=== PATIENT | male | born 1945 | race Caucasian/White ===

== ENCOUNTER 2018-07-24 16:37 | Emergency (ER) | payer MEDICARE, OTHER ==
[2018-07-24] MEDS ORDERED: Aspirin 81 MG Tab.Chew PO ONE (16:43)
[2018-07-24] MEDS ORDERED: Diltiazem 25 MG/5 ML SDV IVPUSH ONE (17:23)
[2018-07-24] MEDS ORDERED: Diltiazem 100 MG in Sodium Chloride 0.9% 100 ML IV SCH (18:00)
--- NOTE | 2018-07-24 18:27 | EDM.PDOC ---
ED HPI GENERAL MEDICAL PROBLEM - General Chief Complaint: Respiratory Problem Stated Complaint: MEDICAL VIA AMBULANCE Time Seen by Provider: 07/24/18 17:00 - History of Present Illness INITIAL COMMENTS - FREE TEXT/NARRATIVE: 73-year-old male with history of extensive vascular disease and COPD presents with concerns of lightheadedness. He initially called EMS because he was watching television he became acutely short of breath. He denies any chest pain with this. EMS administered a DuoNeb prior to transfer after which he continued to feel quite lightheaded. Upon presentation to the ED here continues to feel lightheaded and generally unwell. He continues to deny chest pain. No significant cough. 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 - Related Data Allergies Allergy/AdvReac Type Severity Reaction Status Date / Time No Known Allergies Allergy Verified 07/24/18 16:41 Home Meds: Home Meds Aspirin [Joi Chewable Aspirin] 1 tab PO DAILY 05/29/18 [History] FLUoxetine [PROzac] 1 tab PO DAILY 05/29/18 [History] Gabapentin [Neurontin] 1 cap PO TID 05/29/18 [History] Metoprolol Tartrate [Lopressor] 1 tab PO BID 05/29/18 [History] Omeprazole 1 tab PO DAILY 05/29/18 [History] atorvaSTATin [Lipitor] 1 tab PO BEDTIME 05/29/18 [History] buPROPion [Wellbutrin SR] 150 mg PO BID 07/24/18 [History] Past Medical History HEENT History: Reports: Cataract Cardiovascular History: Reports: Aneurysm, High Cholesterol, Hypertension, Other (See Below) Other Cardiovascular History: arterial disease Gastrointestinal History: Reports: PUD Genitourinary History: Reports: Renal Calculus Musculoskeletal History: Reports: Amputation, Osteoporosis Neurological History: Reports: CVA, Other (See Below) Other Neuro History: "when i was 24 i had a stroke" Psychiatric History: Reports: Depression - Past Surgical History HEENT Surgical History: Reports: Cataract Surgery, Tonsillectomy Cardiovascular Surgical History: Reports: Vascular Surgery, Other (See Below) Other Cardiovascular Surgeries/Procedures: aortic bifemoral bypass Musculoskeletal Surgical History: Reports: Amputation, Other (See Below) Other Musculoskeletal Surgeries/Procedures:: Right BKA Social & Family History - Tobacco Use Smoking Status *Q: Former Smoker Years of Tobacco use: 50 Packs/Tins Daily: 1 Used Tobacco, but Quit: Yes Month/Year Tobacco Last Used: - Caffeine Use Caffeine Use: Reports: Coffee Other Caffeine Use: 1 cup coffee, occational soda - Alcohol Use Days Per Week of Alcohol Use: 2 Number of Drinks Per Day: 2 Total Drinks Per Week: 4 - Recreational Drug Use Recreational Drug Use: No ED ROS GENERAL - Review of Systems Review Of Systems: See Below Constitutional: Reports: No Symptoms HEENT: Reports: No Symptoms Respiratory: Reports: Shortness of Breath Cardiovascular: Reports: Lightheadedness Endocrine: Reports: No Symptoms GI/Abdominal: Reports: No Symptoms : Reports: No Symptoms Musculoskeletal: Reports: No Symptoms Skin: Reports: No Symptoms Neurological: Reports: No Symptoms Psychiatric: Reports: No Symptoms Hematologic/Lymphatic: Reports: No Symptoms Immunologic: Reports: No Symptoms ED EXAM, GENERAL - Physical Exam Exam: See Below Exam Limited By: No Limitations General Appearance: Alert, WD/WN Nose: Normal Inspection Throat/Mouth: Normal Inspection Respiratory/Chest: No Respiratory Distress, Lungs Clear, Other (lung sounds distant, no wheezing) Cardiovascular: No Murmur, Tachycardia, Irregularly Irregular GI/Abdominal: Normal Bowel Sounds, Soft, Non-Tender Back Exam: Normal Inspection Extremities: Other (R BKA) Neurological: Alert, Oriented Psychiatric: Normal Affect, Normal Mood Skin Exam: Warm, Dry Course - Vital Signs Last Recorded V/S: Last Vital Signs Temp 36.1 C 07/24/18 16:48 Pulse 61 07/24/18 17:54 Resp 14 07/24/18 17:54 BP 129/58 L 07/24/18 17:54 Pulse Ox 97 07/24/18 17:54 - Orders/Labs/Meds Orders: Active Orders 24 hr Category Date Time Status EKG Documentation Completion [RC] ASDIRECTED Care 07/24/18 16:46 Active CXR [Chest 1V Frontal] [CR] Stat Exams 07/24/18 16:58 Taken Diltiazem [Cardizem] 100 mg Med 07/24/18 18:00 Active Sodium Chloride 0.9% [Normal Saline] 100 ml IV TITRATE EKG 12 Lead [EK] Routine Ther 07/24/18 16:45 Ordered Medication Orders Diltiazem HCl 100 mg/ Sodium (Chloride) 100 mls @ 5 mls/hr IV TITRATE TISH; Protocol Labs: Laboratory Tests 07/24/18 07/24/18 Range/Units 16:42 16:42 WBC 9.8 (4.5-11.0) K/uL RBC 4.69 (4.30-5.90) M/uL Hgb 14.4 (12.0-15.0) g/dL Hct 44.1 (40.0-54.0) % MCV 94 (80-98) fL MCH 31 (27-31) pg MCHC 33 (32-36) % Plt Count 196 (150-400) K/uL Sodium 138 L (140-148) mmol/L Potassium 3.8 (3.6-5.2) mmol/L Chloride 99 L (100-108) mmol/L Carbon Dioxide 26 (21-32) mmol/L Anion Gap 16.8 H (5.0-14.0) mmol/L BUN 13 D (7-18) mg/dL Creatinine 1.0 (0.8-1.3) mg/dL Est Cr Clr Drug Dosing 47.12 mL/min Estimated GFR (MDRD) > 60 (>60) Glucose 95 (74-106) mg/dL Calcium 9.5 (8.5-10.1) mg/dL Total Bilirubin 0.5 D (0.2-1.0) mg/dL AST 27 (15-37) U/L ALT 33 (12-78) U/L Alkaline Phosphatase 98 (46-116) U/L Troponin I < 0.017 (0.000-0.056) ng/mL Total Protein 6.6 (6.4-8.2) g/dL Albumin 3.2 L (3.4-5.0) g/dL Globulin 3.4 (2.3-3.5) g/dL Albumin/Globulin Ratio 0.9 L (1.2-2.2) Meds: Medications Generic Name Dose Route Start Last Admin Trade Name Freq PRN Reason Stop Dose Admin Diltiazem HCl 100 mg/ Sodium 100 mls @ 5 mls/hr 07/24/18 18:00 Chloride IV TITRATE TISH Protocol 5 MG/HR Discontinued Medications Generic Name Dose Route Start Last Admin Trade Name Freq PRN Reason Stop Dose Admin Aspirin 324 mg 07/24/18 16:43 07/24/18 17:12 Aspirin PO 07/24/18 16:44 243 mg ONETIME ONE Administration Diltiazem HCl 20 mg 07/24/18 17:23 07/24/18 17:33 Diltiazem IVPUSH 07/24/18 17:24 20 mg ONETIME ONE Administration - Re-Assessments/Exams Free Text/Narrative Re-Assessment/Exam: 73 yo with extensive cardiac history as outlined including PAD, COPD who presents with concerns of light headedness. Initially called EMS for SOB, this was relatively brief. Intermittently tachcardic for EMS EKG shows known LBBB, initial ST depression for EMS now resolved - similar to presentation in Nov. Labs including troponin unremarkable CXR clear. Intermittently in SVT, rates generally 140, up to 160, and runs are self limited. Given the frequency of these believed that were like driving the patient's symptoms. Unclear whether this is aflutte/fib or other. Administered dilt bolus with no recurrence of arrhythmias and started dilt infusion. No tele beds available in [place]. Transferring to [place] where he previously received care. 07/24/18 18:18 Departure - Departure Time of Disposition: 18:20 Disposition: DC/Tfer to Acute Hospital 02 Clinical Impression: SVT (supraventricular tachycardia) - Discharge Information *PRESCRIPTION DRUG MONITORING PROGRAM REVIEWED*: No *COPY OF PRESCRIPTION DRUG MONITORING REPORT IN PATIENT ROCIO: No Referrals: PCP,None [Primary Care Provider] - Critical Care Note - Critical Care Note Total Time (mins): 20 - My Orders Last 24 Hours: My Active Orders 07/24/18 16:45 EKG 12 Lead [EK] Routine 07/24/18 16:46 EKG Documentation Completion [RC] ASDIRECTED 07/24/18 16:58 CXR [Chest 1V Frontal] [CR] Stat 07/24/18 18:00 Diltiazem [Cardizem] 100 mg Sodium Chloride 0.9% [Normal Saline] 100 ml IV TITRATE - Assessment/Plan Last 24 Hours: My Active Orders 07/24/18 16:45 EKG 12 Lead [EK] Routine 07/24/18 16:46 EKG Documentation Completion [RC] ASDIRECTED 07/24/18 16:58 CXR [Chest 1V Frontal] [CR] Stat 07/24/18 18:00 Diltiazem [Cardizem] 100 mg Sodium Chloride 0.9% [Normal Saline] 100 ml IV TITRATE
[2018-07-24] MEDS ORDERED: Albuterol/Ipratropium 3.0-0.5 MG/3 ML Neb Soln ONE (19:12)
[2018-07-24] MEDS ORDERED: Albuterol/Ipratropium 3.0-0.5 MG/3 ML Neb Soln NEB ONE (19:13)
--- NOTE | 2018-07-25 08:57 | CR ---
CHEST: Portable CLINICAL HISTORY:SOB COMPARISON:05/29/2018 FINDINGS: Lungs are emphysematous. Heart size and pulmonary vascularity are normal. There are atherosclerotic changes in the aorta.. Impression: Emphysematous changes No acute cardiopulmonary process
--- NOTE | 2018-07-25 09:00 | CR ---
CHEST: Portable CLINICAL HISTORY:SOB COMPARISON:Earlier same day FINDINGS: Lungs are emphysematous. Heart size and pulmonary vascularity are normal. No infiltrate effusion or pneumothorax is seen. Impression: Emphysematous changes No acute cardiopulmonary process.
== END 2018-07-24 19:30 ==
LOC: JP.ED 16:37
DX: I47.1 Supraventricular tachycardia (principal); I10 Essential (primary) hypertension; E78.00 Pure hypercholesterolemia, unspecified; Z79.82 Long term (current) use of aspirin; Z79.899 Other long term (current) drug therapy; Z87.891 Personal history of nicotine dependence
CPT/HCPCS: 36415; 71045; 80053; 84484; 85027; 93005; 94640; 96365; 96376; 99285; A9270; J3490; J7030; 93010; J7620-GY

== ENCOUNTER 2018-09-05 08:55 | Emergency (ER) | payer MEDICARE, OTHER ==
--- NOTE | 2018-09-05 09:40 | EDM.PDOC ---
ED HPI GENERAL MEDICAL PROBLEM - General Chief Complaint: General Stated Complaint: PAIN IN LEFT RIB CAGE Time Seen by Provider: 09/05/18 09:30 Source of Information: Reports: Patient History Limitations: Reports: No Limitations - History of Present Illness INITIAL COMMENTS - FREE TEXT/NARRATIVE: 73-year-old male with left lateral chest pain for the past 2 days. He has had this same recurring sore area over the past several months. Worse with coughing , breathing, moving or palpation. He is not short of breath, no fever, his cough has improved since starting on ipratropium and inhaled steroids. No rash over the painful area, no trauma. Onset: Gradual Duration: Day(s): (Several days) Associated Symptoms: Reports: Chest Pain, Cough. Denies: Diaphoresis, Loss of Appetite, Malaise, Nausea/Vomiting, Shortness of Breath (Patient is not short of breath but has pleuritic pain with breathing) Left Thoracic Pain Score (Numeric/FACES): 7 - Related Data Allergies Allergy/AdvReac Type Severity Reaction Status Date / Time No Known Allergies Allergy Verified 08/10/18 21:08 Home Meds: Home Meds Aspirin [Joi Chewable Aspirin] 1 tab PO DAILY 05/29/18 [History] FLUoxetine [PROzac] 1 tab PO DAILY 05/29/18 [History] Gabapentin [Neurontin] 1 cap PO TID 05/29/18 [History] Metoprolol Tartrate [Lopressor] 1 tab PO BID 05/29/18 [History] Omeprazole 1 tab PO DAILY 05/29/18 [History] atorvaSTATin [Lipitor] 1 tab PO BEDTIME 05/29/18 [History] buPROPion [Wellbutrin SR] 150 mg PO BID 07/24/18 [History] Past Medical History HEENT History: Reports: Cataract Cardiovascular History: Reports: Aneurysm, High Cholesterol, Hypertension, PVD, Other (See Below) Other Cardiovascular History: arterial disease Respiratory History: Reports: COPD Gastrointestinal History: Reports: PUD Genitourinary History: Reports: Renal Calculus Musculoskeletal History: Reports: Amputation, Osteoporosis Neurological History: Reports: CVA, Other (See Below) Other Neuro History: "when i was 24 i had a stroke" Psychiatric History: Reports: Depression - Infectious Disease History Infectious Disease History: Reports: Chicken Pox, Measles - Past Surgical History HEENT Surgical History: Reports: Cataract Surgery, Tonsillectomy Cardiovascular Surgical History: Reports: Vascular Surgery, Other (See Below) Other Cardiovascular Surgeries/Procedures: aortic bifemoral bypass Musculoskeletal Surgical History: Reports: Amputation, Other (See Below) Other Musculoskeletal Surgeries/Procedures:: Right above them knee Social & Family History - Tobacco Use Smoking Status *Q: Never Smoker - Caffeine Use Caffeine Use: Reports: Coffee Other Caffeine Use: 1 cup coffee, occational soda - Recreational Drug Use Recreational Drug Use: No ED ROS GENERAL - Review of Systems Review Of Systems: See Below Constitutional: Denies: Fever, Chills HEENT: Reports: No Symptoms Respiratory: Reports: Pleuritic Chest Pain, Cough Cardiovascular: Reports: Chest Pain. Denies: Palpitations GI/Abdominal: Denies: Abdominal Pain, Nausea, Vomiting : Reports: No Symptoms Musculoskeletal: Reports: Leg Pain Skin: Denies: Rash Neurological: Reports: Other (Chronic neuropathy, especially right leg) ED EXAM, GENERAL - Physical Exam Exam: See Below Exam Limited By: No Limitations General Appearance: Alert, No Apparent Distress, Other (Looks uncomfortable when he breathes or moves) Head: Atraumatic Respiratory/Chest: No Respiratory Distress, Lungs Clear, Other (Patient has a very tender area at the inferior lateral aspect of the left ribs, no crepitus, bruising, rash, or visual abnormality) Cardiovascular: Irregularly Irregular GI/Abdominal: Non-Tender Extremities: Other (Above the knee amputation on the right) Neurological: Alert, Oriented Course - Vital Signs Last Recorded V/S: Last Vital Signs Temp 208.9 F H 09/05/18 09:06 Pulse 56 L 09/05/18 10:19 Resp 16 09/05/18 10:19 BP 134/51 L 09/05/18 10:19 Pulse Ox 92 L 09/05/18 10:19 - Orders/Labs/Meds Orders: Active Orders 24 hr Category Date Time Status Chest 2V [CR] Routine Exams 09/05/18 09:35 Taken - Re-Assessments/Exams Free Text/Narrative Re-Assessment/Exam: 09/05/18 09:50 A two-view chest x-ray was obtained. 09/05/18 10:18 Chest x-ray was normal other than emphysematous changes. We discussed pain control, patient will try ibuprofen for a couple of days and continue his gabapentin. He takes ibuprofen longer than 2 or 3 days he'll check his INR. Departure - Departure Time of Disposition: 10:31 Disposition: Home, Self-Care 01 Condition: Good Clinical Impression: Left-sided chest wall pain - Discharge Information Instructions: Chest Wall Pain, [id number] Referrals: Maximo Bell MD [Primary Care Provider] - Forms: ED Department Discharge Care Plan Goals: Continue your current medications and add naproxen or ibuprofen for pain over the next few days. Recheck if not improving satisfactorily, you may need physical therapy. - My Orders Last 24 Hours: My Active Orders 09/05/18 09:35 Chest 2V [CR] Routine - Assessment/Plan Last 24 Hours: My Active Orders 09/05/18 09:35 Chest 2V [CR] Routine
--- NOTE | 2018-09-07 10:36 | CRLCR ---
Final Report Patient: OZIEL PARIKH Facility: [facility] Site Site : [id number] Study: XRay Chest -09/05/2018 10:27:05 AM Ordering Physician: DR NICHOLS Final Report: INDICATION: Dyspnea. COMPARISON: Two view chest dated 08/10/2018. TECHNIQUE: Two view chest. FINDINGS: There is pulmonary hyperinflation and attenuation of the upper lobe vasculature reflecting underlying COPD/emphysema. There are no suspicious infiltrates or masses. Heart is within the upper range of normal in size. There is no evidence of pneumothorax or pleural effusion. IMPRESSION: COPD/emphysema. Dictated by Chris Mcarthur MD @ 09/07/2018 10:32:25 AM [facility]
== END 2018-09-05 10:31 | disposition home or self-care (01) ==
LOC: JP.ED 08:55
DX: R07.89 Other chest pain (principal); I10 Essential (primary) hypertension; Z86.73 Personal history of transient ischemic attack (TIA), and cerebral infarction without residual deficits; Z79.82 Long term (current) use of aspirin; Z98.49 Cataract extraction status, unspecified eye; Z98.890 Other specified postprocedural states
CPT/HCPCS: 71046; 99285

== ENCOUNTER 2018-10-12 19:32 | Inpatient (IN) | payer MEDICARE, OTHER ==
[2018-10-12] MEDS ORDERED: Acetaminophen 500 MG Tab PO ONE (20:29)
[2018-10-12] MEDS ORDERED: Lactated Ringers 1,000 ML IV ONE ×3 (20:30→22:57)
[2018-10-12] MEDS ORDERED: Polyethylene Glycol 3350 Powder 17 GM Packet PO ONE (20:33)
--- NOTE | 2018-10-12 20:36 | EDM.PDOC ---
ED HPI GENERAL MEDICAL PROBLEM - General Chief Complaint: Fever Stated Complaint: DONT FEEL GOOD Time Seen by Provider: 10/12/18 20:20 Source of Information: Reports: Patient, Old Records History Limitations: Reports: No Limitations - History of Present Illness INITIAL COMMENTS - FREE TEXT/NARRATIVE: 73 yo male with a pHx of COPD presents with onset this morning of fever and chills. Had posterior neck and bilateral shoulder pain at one point, not now. No self tx. Did have a flu shot this season. Feels a little more SOB than normal and is a little constipated. No dysuria. No rash. Mild abdominal discomfort from his constipation. Uses a fiber tablet for tx of his constipation. No sore throat. Onset: Today Onset Date: 10/12/18 Onset Time: 08:30 Duration: Constant Location: Reports: Generalized Quality: Reports: Other (mild abdominal cramps from his constipation. ) Severity: Mild Improves with: Reports: None Worsens with: Reports: Other (? time) Context: Reports: Other (See HPI) Associated Symptoms: Reports: Fever/Chills, Nausea/Vomiting (nausea without vomiting earlier, not now.), Shortness of Breath (mild increase in his chronic SOB). 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) (none) Abdominal Pain Score (Numeric/FACES): 8 - Related Data Allergies Allergy/AdvReac Type Severity Reaction Status Date / Time No Known Allergies Allergy Verified 10/12/18 20:14 Home Meds: Home Meds Aspirin [Joi Chewable Aspirin] 1 tab PO DAILY 05/29/18 [History] FLUoxetine [PROzac] 1 tab PO DAILY 05/29/18 [History] Gabapentin [Neurontin] 2 cap PO TID 05/29/18 [History] Metoprolol Tartrate [Lopressor] 1 tab PO BID 05/29/18 [History] Omeprazole 1 tab PO DAILY 05/29/18 [History] atorvaSTATin [Lipitor] 1 tab PO BEDTIME 05/29/18 [History] Calcium Polycarbophil [Fibercon] 625 mg PO DAILY 10/12/18 [History] Fish Oil/[place]-3 Fatty Acids [Fish Oil 1,000 MG] 1,040 gm PO DAILY 10/12/18 [ History] Past Medical History HEENT History: Reports: Cataract Cardiovascular History: Reports: Afib, Aneurysm, High Cholesterol, Hypertension , PVD, SOB on Exertion, Other (See Below) Other Cardiovascular History: arterial disease Respiratory History: Reports: COPD, SOB Gastrointestinal History: Reports: PUD Genitourinary History: Reports: Renal Calculus Musculoskeletal History: Reports: Amputation, Osteoporosis Neurological History: Reports: CVA, Neuropathy, Peripheral, Other (See Below) Other Neuro History: "when i was 24 i had a stroke" Psychiatric History: Reports: Depression - Infectious Disease History Infectious Disease History: Reports: Chicken Pox, Measles - Past Surgical History HEENT Surgical History: Reports: Cataract Surgery, Tonsillectomy Cardiovascular Surgical History: Reports: Vascular Surgery, Other (See Below) Other Cardiovascular Surgeries/Procedures: aortic bifemoral bypass. needs ablation Musculoskeletal Surgical History: Reports: Amputation, Other (See Below) Other Musculoskeletal Surgeries/Procedures:: Right above them knee Social & Family History - Caffeine Use Caffeine Use: Reports: Coffee Other Caffeine Use: 1 cup coffee, occational soda ED ROS GENERAL - Review of Systems Review Of Systems: See Below Constitutional: Reports: Fever, Chills, Malaise HEENT: Reports: No Symptoms Respiratory: Reports: Shortness of Breath. Denies: Wheezing, Pleuritic Chest Pain, Cough, Sputum, Hemoptysis Cardiovascular: Reports: No Symptoms Endocrine: Reports: No Symptoms GI/Abdominal: Reports: Abdominal Pain (mild, diffuse), Constipation (No BM x 2- 3 d), Nausea (not now). Denies: Black Stool, Bloody Stool, Diarrhea, Distension , Hematemesis, Hematochezia, Melena, Vomiting : Reports: No Symptoms Musculoskeletal: Reports: No Symptoms Skin: Reports: No Symptoms Neurological: Reports: No Symptoms Psychiatric: Reports: No Symptoms ED EXAM, SEPSIS - Physical Exam Exam: See Below Exam Limited By: No Limitations General Appearance: Alert, WD/WN, No Apparent Distress Eye Exam: Bilateral Eye: Normal Inspection Ears: Normal External Exam, Normal Canal, Hearing Grossly Normal, Normal TMs Nose: Normal Inspection, No Blood Throat/Mouth: Normal Inspection, Normal Lips, Normal Oropharynx, Normal Voice, No Airway Compromise, Other (dry oral mucosa) Head: Atraumatic, Normocephalic Neck: Normal Inspection, Non-Tender Respiratory/Chest: No Respiratory Distress, No Accessory Muscle Use, Decreased Breath Sounds Cardiovascular: Regular Rate, Rhythm, No Edema GI/Abdominal Exam: Normal Bowel Sounds, Soft, Non-Tender, No Distention Back: Normal Inspection. No: CVA Tenderness (R), CVA Tenderness (L) Extremities: Normal Inspection, Normal Range of Motion, Non-Tender, No Pedal Edema Neurological: Alert, Oriented, CN II-XII Intact, Normal Cognition, No Motor/ Sensory Deficits Psychiatric: Normal Affect, Normal Mood Skin: Warm, Dry, Intact, Normal Color, No Rash Lymphatic: Bilateral: No Adenopathy Course - Vital Signs Text/Narrative:: Blossom Limon aware @ 12:55am Last Recorded V/S: Last Vital Signs Temp 37.2 C 10/12/18 23:57 Pulse 68 10/12/18 23:57 Resp 20 10/12/18 23:57 BP 109/49 L 10/12/18 23:57 Pulse Ox 94 L 10/12/18 23:57 - Orders/Labs/Meds Orders: Active Orders 24 hr Category Date Time Status CULTURE BLOOD [BC] Stat Lab 10/12/18 20:52 Received CULTURE BLOOD [BC] Stat Lab 10/12/18 20:52 Received cefTRIAXone [Rocephin] 1 gm Med 10/13/18 00:40 Active Sodium Chloride 0.9% [Normal Saline] 50 ml IV ONETIME Medication Orders Ceftriaxone Sodium 1 gm/ (Sodium Chloride) 50 mls @ 100 mls/hr IV ONETIME ONE Stop: 10/13/18 01:09 Last Admin: 10/13/18 00:52 Dose: 100 mls/hr Labs: Laboratory Tests 10/12/18 10/12/18 10/12/18 Range/Units 20:30 20:30 23:52 WBC 20.7 H (4.5-11.0) K/uL RBC 4.51 (4.30-5.90) M/uL Hgb 12.7 (12.0-15.0) g/dL Hct 41.7 (40.0-54.0) % MCV 93 (80-98) fL MCH 28 (27-31) pg MCHC 31 L (32-36) % Plt Count 241 (150-400) K/uL Sodium 140 (140-148) mmol/L Potassium 4.1 (3.6-5.2) mmol/L Chloride 103 (100-108) mmol/L Carbon Dioxide 25 (21-32) mmol/L Anion Gap 12.3 (5.0-14.0) mmol/L BUN 30 H (7-18) mg/dL Creatinine 1.5 H (0.8-1.3) mg/dL Est Cr Clr Drug Dosing 35.13 mL/min Estimated GFR (MDRD) 46 L (>60) Glucose 133 H (74-106) mg/dL Calcium 8.8 (8.5-10.1) mg/dL Troponin I < 0.017 (0.000-0.056) ng/mL Urine Color Yellow Urine Appearance Clear Urine pH 5.0 (4.5-8.0) Ur Specific [place] 1.015 (1.008-1.030) Urine Protein Negative (NEGATIVE) mg/dL Urine Glucose (UA) Normal (NEGATIVE) mg/dL Urine Ketones Negative (NEGATIVE) mg/dL Urine Occult Blood Negative (NEGATIVE) Urine Nitrite Negative (NEGAITVE) Urine Bilirubin Negative (NEGATIVE) Urine Urobilinogen Normal (NORMAL) mg/dL Ur Leukocyte Esterase Negative (NEGATIVE) Urine RBC 0-5 (0-5) Urine WBC 0-5 (0-5) Ur Epithelial Cells Few Amorphous Sediment Not seen Urine Bacteria Few Urine Mucus Not seen Meds: Medications Generic Name Dose Route Start Last Admin Trade Name Freq PRN Reason Stop Dose Admin Ceftriaxone Sodium 1 gm/ 50 mls @ 100 mls/hr 10/13/18 00:40 10/13/18 00:52 Sodium Chloride IV 10/13/18 01:09 100 mls/hr ONETIME ONE Administration Discontinued Medications Generic Name Dose Route Start Last Admin Trade Name Freq PRN Reason Stop Dose Admin Acetaminophen 1,000 mg 10/12/18 20:29 10/12/18 20:42 Tylenol Extra Strength PO 10/12/18 20:30 1,000 mg ONETIME ONE Administration Azithromycin 500 mg 10/13/18 00:40 10/13/18 00:53 Zithromax PO 10/13/18 00:41 500 mg ONETIME ONE Administration Lactated Ringer's 1,000 mls @ 1,000 mls/hr 10/12/18 20:30 10/12/18 20:45 Ringers, Lactated IV 10/12/18 21:29 1,000 mls/hr BOLUS ONE Administration Lactated Ringer's 1,000 mls @ 1,000 mls/hr 10/12/18 21:33 10/12/18 21:52 Ringers, Lactated IV 10/12/18 22:32 1,000 mls/hr BOLUS ONE Administration Lactated Ringer's 1,000 mls @ 1,000 mls/hr 10/12/18 22:57 10/12/18 23:00 Ringers, Lactated IV 10/12/18 23:56 1,000 mls/hr BOLUS ONE Administration Polyethylene Glycol 34 gm 10/12/18 20:33 10/12/18 20:43 Miralax PO 10/12/18 20:34 34 gm ONETIME ONE Administration - Radiology Interpretation Free Text/Narrative:: CXR-RLL pneumonia Departure - Departure Time of Disposition: 01:00 Disposition: Admitted As Inpatient 66 Condition: Fair Clinical Impression: Pneumonia Qualifiers: Pneumonia type: due to unspecified organism Laterality: right Lung location: lower lobe of lung Qualified Code(s): J18.1 - Lobar pneumonia, unspecified organism - Discharge Information *PRESCRIPTION DRUG MONITORING PROGRAM REVIEWED*: No *COPY OF PRESCRIPTION DRUG MONITORING REPORT IN PATIENT ROICO: No Referrals: Maximo Bell MD [Primary Care Provider] - Forms: ED Department Discharge - My Orders Last 24 Hours: My Active Orders 10/12/18 20:52 CULTURE BLOOD [BC] Stat CULTURE BLOOD [BC] Stat 10/13/18 00:40 cefTRIAXone [Rocephin] 1 gm Sodium Chloride 0.9% [Normal Saline] 50 ml IV ONETIME - Assessment/Plan Last 24 Hours: My Active Orders 10/12/18 20:52 CULTURE BLOOD [BC] Stat CULTURE BLOOD [BC] Stat 10/13/18 00:40 cefTRIAXone [Rocephin] 1 gm Sodium Chloride 0.9% [Normal Saline] 50 ml IV ONETIME
[2018-10-13] MEDS ORDERED: cefTRIAXone 1 GM in Sodium Chloride 0.9% 50 ML IV ONE (00:40)
[2018-10-13] MEDS ORDERED: Azithromycin 250 MG Tab PO ONE (00:40)
--- NOTE | 2018-10-13 00:45 | CRLCR ---
INDICATION: Fever TECHNIQUE: Chest 2 views COMPARISON: Chest x-ray 09/05/2018 FINDINGS: Cardiovascular and mediastinum: Normal heart size with atherosclerotic calcification. Lungs and pleural spaces: Hyperinflated with attenuation of the vasculature in the upper lungs. Focal airspace consolidation within the right middle and right lower lobes. Bones and soft tissues: No significant findings. IMPRESSION: Hyperinflation consistent with underlying emphysema with focal opacities at the right middle lobe and right lower lobe suspicious for pneumonia. Dictated by Marshall Gibbs MD @ Oct 13 2018 12:43AM Signed by Dr. Marshall Gibbs @ Oct 13 2018 12:44AM
[2018-10-13] MEDS ORDERED: Acetaminophen/HYDROcodone 325-5 MG Tab PO PRN (02:47)
[2018-10-13] MEDS ORDERED: Sodium Chloride 0.9% 1,000 ML IV SCH (02:47)
[2018-10-13] MEDS ORDERED: Bisacodyl 5 MG Tab PO PRN (02:47)
[2018-10-13] MEDS ORDERED: Ondansetron 4 MG Tab.DIS PO PRN (02:47)
[2018-10-13] MEDS ORDERED: Acetaminophen 325 MG Tab PO PRN (02:47)
[2018-10-13] MEDS ORDERED: HYDROmorphone 1 MG/ML Syringe IVPUSH PRN (02:47)
[2018-10-13] MEDS ORDERED: Albuterol 0.083% 2.5 MG/3 ML Neb Soln NEB PRN (02:47)
[2018-10-13] MEDS ORDERED: Docusate Sodium 100 MG Cap PO PRN (02:47)
[2018-10-13] MEDS ORDERED: methylPREDNISolone Sodium Succinate 125 MG/2 ML SDV IVPUSH ONE (02:47)
[2018-10-13] MEDS ORDERED: LORazepam 2 MG/ML SDV IV PRN (02:47)
--- NOTE | 2018-10-13 03:54 | PCM.HP ---
H&P History of Present Illness - General Date of Service: 10/12/18 Admit Problem/Dx: Admission Diagnosis/Problem Admission Diagnosis/Problem Pneumonia Source of Information: Patient History Limitations: Reports: No Limitations - History of Present Illness Initial Comments - Free Text/Narative: 73 yo male with a pHx of COPD presents with onset this morning of fever and chills. Had posterior neck and bilateral shoulder pain at one point, not now. No self tx. Did have a flu shot this season. Feels a little more SOB than normal and is a little constipated. No dysuria. No rash. Mild abdominal discomfort from his constipation. Uses a fiber tablet for tx of his constipation. No sore throat. Onset of Symptoms: Reports: Today Duration of Symptoms: Reports: Hour(s):, Getting Worse Location: Reports: Generalized (fever and shaking chills x one day, not feeling well for the past two day) Quality: Reports: Ache (body aches) Severity: Moderate Improves with: Reports: None Worsens with: Reports: None Associated Symptoms: Reports: Cough, Fever/Chills, Headaches, Loss of Appetite Abdominal Pain Score (Numeric/FACES): 8 - Related Data Allergies/Adverse Reactions: Allergies Allergy/AdvReac Type Severity Reaction Status Date / Time No Known Allergies Allergy Verified 10/12/18 20:14 Home Medications: Home Meds Aspirin [Joi Chewable Aspirin] 1 tab PO DAILY 05/29/18 [History] FLUoxetine [PROzac] 1 tab PO DAILY 05/29/18 [History] Gabapentin [Neurontin] 2 cap PO TID 05/29/18 [History] Metoprolol Tartrate [Lopressor] 1 tab PO BID 05/29/18 [History] Omeprazole 1 tab PO DAILY 05/29/18 [History] atorvaSTATin [Lipitor] 1 tab PO BEDTIME 05/29/18 [History] Calcium Polycarbophil [Fibercon] 625 mg PO DAILY 10/12/18 [History] Fish Oil/[place]-3 Fatty Acids [Fish Oil 1,000 MG] 1,040 gm PO DAILY 10/12/18 [ History] Albuterol Sulfate 2.5 mg IH QID 10/13/18 [History] Albuterol [Ventolin HFA] 2 puff IH Q4HR PRN 10/13/18 [History] Budesonide [Pulmicort] 0.5 mg IH BID 10/13/18 [History] Cyclobenzaprine [Flexeril] 10 mg PO TID 10/13/18 [History] Warfarin [Coumadin] 2.5 mg PO ASDIRECTED 10/13/18 [History] Past Medical History HEENT History: Reports: Cataract Cardiovascular History: Reports: Afib, Aneurysm, High Cholesterol, Hypertension , PVD, SOB on Exertion, Other (See Below) Other Cardiovascular History: arterial disease Respiratory History: Reports: COPD, SOB Gastrointestinal History: Reports: PUD Genitourinary History: Reports: Renal Calculus Musculoskeletal History: Reports: Amputation, Osteoporosis Other Musculoskeletal History: Phantom pain Neurological History: Reports: CVA, Neuropathy, Peripheral, Other (See Below) Other Neuro History: "when i was 24 i had a stroke" Psychiatric History: Reports: Depression - Infectious Disease History Infectious Disease History: Reports: Chicken Pox, Measles - Past Surgical History HEENT Surgical History: Reports: Cataract Surgery, Tonsillectomy Cardiovascular Surgical History: Reports: Vascular Surgery, Other (See Below) Other Cardiovascular Surgeries/Procedures: aortic bifemoral bypass. needs ablation Musculoskeletal Surgical History: Reports: Amputation, Other (See Below) Other Musculoskeletal Surgeries/Procedures:: Right above them knee Social & Family History - Tobacco Use Smoking Status *Q: Former Smoker Years of Tobacco use: 52 Packs/Tins Daily: 1 Used Tobacco, but Quit: Yes Month/Year Tobacco Last Used: apr 2018 - Caffeine Use Caffeine Use: Reports: Coffee Other Caffeine Use: 1 cup coffee, occational soda - Recreational Drug Use Recreational Drug Use: No - Living Situation & Occupation Living situation: Reports: ( last fall.) Occupation: Retired (was living in the state of [place], , was asked by Cousins to come to [place] to live in [facility]. has two adult Children living in [place] and [place].) H&P Review of Systems - Review of Systems: Review Of Systems: Unable To Obtain General: Reports: Fever, Chills, Malaise, Fatigue, Decreased Appetite HEENT: Reports: Other (dentures) Pulmonary: Reports: Shortness of Breath, Wheezing, Pleuritic Chest Pain, Cough, Other (smokes one pack a day for 50 years. quit. hx of COPD) Cardiovascular: Reports: No Symptoms Gastrointestinal: Reports: No Symptoms Genitourinary: Reports: No Symptoms Musculoskeletal: Reports: Leg Pain (9 yrs ago, above the knee amputation for PVD , has phantom pain in right legs. ambulates with crutches.) Skin: Reports: No Symptoms Psychiatric: Reports: No Symptoms Neurological: Reports: No Symptoms Hematologic/Lymphatic: Reports: No Symptoms Immunologic: Reports: No Symptoms Exam - Exam Exam: See Below - Vital Signs Vital Signs: Last Vital Signs Temp 36.6 C 10/13/18 03:36 Pulse 69 10/13/18 03:36 Resp 18 10/13/18 03:36 BP 110/38 L 10/13/18 03:36 Pulse Ox 94 L 10/13/18 03:39 Weight: 55.8 kg - Exam Quality Assessment: Other (IV) General: Alert, Oriented, 4 HEENT: PERRLA, Hearing Intact, Mucosa Moist & Sunburst, Nares Patent, Normal Nasal Septum, Posterior Pharynx Clear, Conjunctiva Clear, EOMI, EACs Clear, TMs Clear Neck: Supple Lungs: Decreased Breath Sounds (bilateral), Crackles (bilateral), Wheezing ( bilateral) Cardiovascular: Regular Rate, Regular Rhythm, Normal S1, Normal S2 GI/Abdominal Exam: Normal Bowel Sounds, Soft, Non-Tender, No Organomegaly, No Distention, No Abnormal Bruit, No Mass, Pelvis Stable (Male) Exam: Deferred Rectal (Males) Exam: Deferred Back Exam: Normal Inspection, Full Range of Motion, NT Extremities: Normal Inspection, Normal Range of Motion, Non-Tender, No Pedal Edema, Normal Capillary Refill Skin: Warm, Dry, Intact Neurological: Cranial Nerves Intact Neuro Extensive - Mental Status: Alert, Oriented x3, Normal Mood/Affect, Normal Cognition Neuro Extensive - Motor, Sensory, Reflexes: CN II-XII Intact, Normal Gait, Normal Reflexes Psychiatric: Alert, Normal Affect, Normal Mood - Patient Data Lab Results Last 24 hrs: Laboratory Results - last 24 hr 10/12/18 10/12/18 10/12/18 Range/Units 20:30 20:30 23:52 WBC 20.7 H (4.5-11.0) K/uL RBC 4.51 (4.30-5.90) M/uL Hgb 12.7 (12.0-15.0) g/dL Hct 41.7 (40.0-54.0) % MCV 93 (80-98) fL MCH 28 (27-31) pg MCHC 31 L (32-36) % Plt Count 241 (150-400) K/uL Sodium 140 (140-148) mmol/L Potassium 4.1 (3.6-5.2) mmol/L Chloride 103 (100-108) mmol/L Carbon Dioxide 25 (21-32) mmol/L Anion Gap 12.3 (5.0-14.0) mmol/L BUN 30 H (7-18) mg/dL Creatinine 1.5 H (0.8-1.3) mg/dL Est Cr Clr Drug Dosing 35.13 mL/min Estimated GFR (MDRD) 46 L (>60) Glucose 133 H (74-106) mg/dL Lactic Acid (0.4-2.0) mmol/L Calcium 8.8 (8.5-10.1) mg/dL Troponin I < 0.017 (0.000-0.056) ng/mL Urine Color Yellow Urine Appearance Clear Urine pH 5.0 (4.5-8.0) Ur Specific [place] 1.015 (1.008-1.030) Urine Protein Negative (NEGATIVE) mg/dL Urine Glucose (UA) Normal (NEGATIVE) mg/dL Urine Ketones Negative (NEGATIVE) mg/dL Urine Occult Blood Negative (NEGATIVE) Urine Nitrite Negative (NEGAITVE) Urine Bilirubin Negative (NEGATIVE) Urine Urobilinogen Normal (NORMAL) mg/dL Ur Leukocyte Esterase Negative (NEGATIVE) Urine RBC 0-5 (0-5) Urine WBC 0-5 (0-5) Ur Epithelial Cells Few Amorphous Sediment Not seen Urine Bacteria Few Urine Mucus Not seen 10/13/18 Range/Units 01:44 WBC (4.5-11.0) K/uL RBC (4.30-5.90) M/uL Hgb (12.0-15.0) g/dL Hct (40.0-54.0) % MCV (80-98) fL MCH (27-31) pg MCHC (32-36) % Plt Count (150-400) K/uL Sodium (140-148) mmol/L Potassium (3.6-5.2) mmol/L Chloride (100-108) mmol/L Carbon Dioxide (21-32) mmol/L Anion Gap (5.0-14.0) mmol/L BUN (7-18) mg/dL Creatinine (0.8-1.3) mg/dL Est Cr Clr Drug Dosing mL/min Estimated GFR (MDRD) (>60) Glucose (74-106) mg/dL Lactic Acid 3.8 H (0.4-2.0) mmol/L Calcium (8.5-10.1) mg/dL Troponin I (0.000-0.056) ng/mL Urine Color Urine Appearance Urine pH (4.5-8.0) Ur Specific [place] (1.008-1.030) Urine Protein (NEGATIVE) mg/dL Urine Glucose (UA) (NEGATIVE) mg/dL Urine Ketones (NEGATIVE) mg/dL Urine Occult Blood (NEGATIVE) Urine Nitrite (NEGAITVE) Urine Bilirubin (NEGATIVE) Urine Urobilinogen (NORMAL) mg/dL Ur Leukocyte Esterase (NEGATIVE) Urine RBC (0-5) Urine WBC (0-5) Ur Epithelial Cells Amorphous Sediment Urine Bacteria Urine Mucus Result Diagrams: 10/12/18 20:30 10/12/18 20:30 Sunil Results Last 24 hrs: Microbiology 10/12/18 20:35 Influenza Type A Antigen Screen - Final Nasal, Unspecified NEGATIVE INFLUENZA A VIRUS AG Influenza Type B Antigen Screen - Final NEGATIVE INFLUENZA B VIRUS AG - Problem List (1) Pneumonia SNOMED Code(s): 617271826 ICD Code: J18.9 - PNEUMONIA, UNSPECIFIED ORGANISM Status: Acute Priority : High Current Visit: Yes Qualifiers: Pneumonia type: due to unspecified organism Laterality: right Lung location: lower lobe of lung Qualified Code(s): J18.1 - Lobar pneumonia, unspecified organism (2) COPD (chronic obstructive pulmonary disease) SNOMED Code(s): 52062774 ICD Code: J44.9 - CHRONIC OBSTRUCTIVE PULMONARY DISEASE, UNSPECIFIED Status : Chronic Priority: High Current Visit: Yes Qualifiers: COPD type: COPD with acute lower respiratory infection Qualified Code(s): J44.0 - Chronic obstructive pulmonary disease with acute lower respiratory infection (3) History of right above knee amputation SNOMED Code(s): 784616240 ICD Code: Z89.611 - ACQUIRED ABSENCE OF RIGHT LEG ABOVE KNEE Status: Acute Priority: Low Current Visit: Yes Problem Details: reports has gained wt since moving to [place]. his Prosthetic leg is not fitting properly. has been evaluated at [facility] for new leg. (4) On Coumadin for atrial fibrillation SNOMED Code(s): 22966943, 158433642 ICD Code: Z78.9 - OTHER SPECIFIED HEALTH STATUS Status: Acute Priority: High Current Visit: Yes Problem List Initiated/Reviewed/Updated: Yes Orders Last 24hrs: Active Orders 24 hr Category Date Time Status Intake and Output [RC] QSHIFT Care 10/13/18 02:47 Active Oxygen Therapy [RC] PRN Care 10/13/18 02:47 Active Pulse Oximetry [RC] CONTINUOUS Care 10/13/18 02:47 Active RT Aerosol Therapy [RC] ASDIRECTED Care 10/13/18 02:47 Active Up With Assistance [RC] ASDIRECTED Care 10/13/18 02:47 Active VTE/DVT Education [RC] Per Unit Routine Care 10/13/18 02:47 Active Vital Signs [RC] Q4H Care 10/13/18 02:47 Active OT Evaluation and Treatment [CONS] Routine Cons 10/13/18 02:47 Active PT Evaluation and Treatment [CONS] Routine Cons 10/13/18 02:47 Active Regular Diet [DIET] Diet 10/13/18 Breakfast Active BASIC METABOLIC PANEL,BMP [CHEM] AM Lab 10/13/18 05:11 Ordered CBC WITH AUTO DIFF [HEME] AM Lab 10/13/18 05:11 Ordered CULTURE BLOOD [BC] Stat Lab 10/12/18 20:52 Received CULTURE BLOOD [BC] Stat Lab 10/12/18 20:52 Received INR,PT,PROTHROMBIN TIME [COAG] AM Lab 10/13/18 05:11 Ordered LACTIC ACID [CHEM] Routine Lab 10/13/18 08:10 Ordered Acetaminophen [Tylenol] Med 10/13/18 02:47 Active 650 mg PO Q4H PRN Acetaminophen/HYDROcodone [[place] 325-5 MG] Med 10/13/18 02:47 Active 1 tab PO Q4H PRN Albuterol [Proventil Neb Soln] Med 10/13/18 02:47 Active 2.5 mg NEB Q4H PRN Albuterol/Ipratropium [DuoNeb 3.0-0.5 MG/3 ML] Med 10/13/18 07:00 Active 3 ml NEB QIDRT Azithromycin [Zithromax] 500 mg Med 10/13/18 21:00 Active Sodium Chloride 0.9% [Normal Saline] 250 ml IV ONETIME Bisacodyl [Dulcolax] Med 10/13/18 02:47 Active 5 mg PO DAILY PRN Cyclobenzaprine [Flexeril] Med 10/13/18 09:00 Active 10 mg PO TID Docusate Sodium [Colace] Med 10/13/18 02:47 Active 100 mg PO BID PRN FLUoxetine [PROzac] Med 10/13/18 09:00 Active 10 mg PO DAILY Gabapentin [Neurontin] Med 10/13/18 09:00 Active 600 mg PO TID HYDROmorphone [Dilaudid] Med 10/13/18 02:47 Active 1 mg IVPUSH Q4H PRN LORazepam [Ativan] Med 10/13/18 02:47 Active 1 mg IV Q6H PRN Melatonin Med 10/13/18 21:00 Active 6 mg PO BEDTIME Metoprolol Tartrate [Lopressor] Med 10/13/18 09:00 Active 50 mg PO BID Ondansetron [Zofran ODT] Med 10/13/18 02:47 Active 4 mg PO Q6H PRN Sodium Chloride 0.9% [Normal Saline] 1,000 ml Med 10/13/18 02:47 Active IV ASDIRECTED Warfarin [Coumadin] Med 10/13/18 13:00 Pending 2.5 mg PO DAILY@1300 atorvaSTATin [Lipitor] Med 10/13/18 21:00 Active 80 mg PO BEDTIME cefTRIAXone [Rocephin] 1 gm Med 10/13/18 22:00 Active Sodium Chloride 0.9% [Normal Saline] 50 ml IV Q24H methylPREDNISolone Sod Succ [Solu-MEDROL] Med 10/13/18 09:00 Active 62.5 mg IVPUSH Q6H Resuscitation Status Routine Resus Stat 10/13/18 01:51 Ordered Medication Orders Acetaminophen (Tylenol) 650 mg PO Q4H PRN PRN Reason: Pain (Mild 1-3)/fever Hydrocodone Bitart/Acetaminophen ([place] 325-5 Mg) 1 tab PO Q4H PRN PRN Reason: Pain (moderate 4-6) Albuterol (Proventil Neb Soln) 2.5 mg NEB Q4H PRN PRN Reason: Shortness Of Breath/wheezing Albuterol/Ipratropium (Duoneb 3.0-0.5 Mg/3 Ml) 3 ml NEB QIDRT COUNT INCLUDES THE [facility] Atorvastatin Calcium (Lipitor) 80 mg PO BEDTIME TISH Bisacodyl (Dulcolax) 5 mg PO DAILY PRN PRN Reason: Constipation Cyclobenzaprine HCl (Flexeril) 10 mg PO TID COUNT INCLUDES THE [facility] Docusate Sodium (Colace) 100 mg PO BID PRN PRN Reason: Constipation Fluoxetine HCl (Prozac) 10 mg PO DAILY COUNT INCLUDES THE [facility] Gabapentin (Neurontin) 600 mg PO TID COUNT INCLUDES THE [facility] Hydromorphone HCl (Dilaudid) 1 mg IVPUSH Q4H PRN PRN Reason: Pain Azithromycin 500 mg/ Sodium (Chloride) 250 mls @ 250 mls/hr IV ONETIME ONE Stop: 10/13/18 21:59 Ceftriaxone Sodium 1 gm/ (Sodium Chloride) 50 mls @ 100 mls/hr IV Q24H COUNT INCLUDES THE [facility] Sodium Chloride (Normal Saline) 1,000 mls @ 100 mls/hr IV ASDIRECTED COUNT INCLUDES THE [facility] Last Admin: 10/13/18 03:43 Dose: 100 mls/hr Lorazepam (Ativan) 1 mg IV Q6H PRN PRN Reason: Nausea/Vomiting Melatonin (Melatonin) 6 mg PO BEDTIME COUNT INCLUDES THE [facility] Methylprednisolone Sodium Succinate (Solu-Medrol) 62.5 mg IVPUSH Q6H COUNT INCLUDES THE [facility] Metoprolol Tartrate (Lopressor) 50 mg PO BID COUNT INCLUDES THE [facility] Ondansetron HCl (Zofran Odt) 4 mg PO Q6H PRN PRN Reason: Nausea able to take PO Warfarin Sodium (Coumadin) 2.5 mg PO DAILY@1300 COUNT INCLUDES THE [facility] Assessment/Plan Comment:: ASSESSMENT AND PLAN OF CARE MR. Calderon reports being sick for the past two day, but became suddenly worse this evening with shaking chills, fever, shortness of breath and coughing markedly. He reports no chest pain except when takes a deep breath or coughs. He has been nausea without vomiting for the past 24-36 hours. ER workup shows elevated WBC 20.7, hgb 12.7, hct 41.7, Chemistry normal range except BUN 30, Cr 1.5, glucose 133, CRP. negative influenza A&B, blood cultures pending. Lactic acid ordered before transfer to [address] [place] [address], Lactic acid 3.8 at 01: 44am. Xray chest has right middle and lower lobe infiltrates. Medication given Rocephin and Zithromax in ER. Plan to hospital for further care and treatment. Mr. Calderon and his two Cousins agree with plan of care. Pneumonia, with COPD -Admit to [address] [place] [address] for further monitoring -IV Fluids for rehydration NS at 100 mL per hour, received 3 liters of fluid in ER -IV Antibiotic; Rocephin 1 gram IV every 24 hours -IV Zithromax 500mg every 24 hours -oxygen to keep sats greater than 95% -IV Solumedrol 125mg now, then 62.5mg every 8 hours -schedule Duo nebs every 6 hours, Albuterol nebs every 4 hours prn -Advise to notify nurses of any chest pain or other symptoms -blood cultures x2 pending -And a.m. labs: CBC, BMP Right Above the knee amputation, 9 years ago, 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 has new prosthesis ordered. current prosthetic leg is painful due to recent wt gain. -right Prosthetic leg pain -referral to OT -referral to PT On Coumadin for A-Fib, cardiac history positive for STEMI, SVT, A-Fib, HTN -Coumadin per protocol -ordered home medications -INR.PT in am Maintenance issues -Orders home meds: chronic medication -Nutrition: regular diet -Robbins catheter -not indicated at this time -DVT: SCD -PPI; PO Protonix 40mg daily CODE STATUS: DNR/DNI Admission status: Admit to [address] [place] [address] Admission justification. This patient will be admitted for inpatient services and is medically appropriate meeting medical necessity for inpatient admission as outlined in my documentation. I reasonably expect the patient will require inpatient services that span. Time over 2 midnights. I reasonably expect this patient to be discharged or transferred within 96 hours after admission to the critical access hospital. Disposition: home with Family Primary care provider: Dr. Bell, [facility] Hospitalist: Dr. Berumen
[2018-10-13] MEDS: Albuterol/Ipratropium 3.0-0.5 MG/3 ML Neb Soln NEB SCH ×4 (07:21→20:28)
[2018-10-13] MEDS: Pantoprazole 40 MG Tab.CR PO SCH (08:00)
[2018-10-13] MEDS: Metoprolol Tartrate 50 MG Tab PO SCH ×2 (08:00→20:28)
[2018-10-13] MEDS: FLUoxetine 10 MG Cap PO SCH (08:02)
[2018-10-13] MEDS: Cyclobenzaprine 10 MG Tab PO SCH ×3 (08:02→20:27)
[2018-10-13] MEDS: Gabapentin 300 MG Cap PO SCH ×3 (08:02→20:26)
[2018-10-13] MEDS ORDERED: methylPREDNISolone Sodium Succinate 125 MG/2 ML SDV IVPUSH SCH ×2 (09:00→10:00)
--- NOTE | 2018-10-13 10:57 | PCM.PN ---
- General Info Date of Service: 10/13/18 Subjective Update: Mr. Calderon is a 73-year-old gentleman who was admitted through the emergency department last night with shortness of breath and hypoxia secondary to right lung pneumonia. He feels improved since admission with less shortness of breath. There was evidence of sepsis on admission that appears significantly improved with stable vital signs. Functional Status: Reports: Tolerating Diet, Urinating - Review of Systems General: Reports: Fever, Weakness, Chills Pulmonary: Reports: Shortness of Breath, Cough, Wheezing. Denies: Pleuritic Chest Pain, Sputum, Hemoptysis Cardiovascular: Reports: Dyspnea on Exertion. Denies: Chest Pain, Palpitations , Orthopnea, PND, Edema, Lightheadedness Gastrointestinal: Reports: No Symptoms - Patient Data Vitals - Most Recent: Last Vital Signs Temp 97.0 F 10/13/18 07:00 Pulse 62 10/13/18 10:51 Resp 16 10/13/18 07:00 BP 130/47 L 10/13/18 08:00 Pulse Ox 96 10/13/18 10:51 Weight - Most Recent: 123 lb 0.287 oz I&O - Last 24 Hours: Intake & Output 10/12/18 10/13/18 10/13/18 22:59 06:59 14:59 Output Total 150 200 Balance -150 -200 Lab Results Last 24 Hours: Laboratory Results - last 24 hr 10/12/18 10/12/18 10/12/18 Range/Units 20:30 20:30 23:52 WBC 20.7 H (4.5-11.0) K/uL RBC 4.51 (4.30-5.90) M/uL Hgb 12.7 (12.0-15.0) g/dL Hct 41.7 (40.0-54.0) % MCV 93 (80-98) fL MCH 28 (27-31) pg MCHC 31 L (32-36) % Plt Count 241 (150-400) K/uL Neut % (Auto) (36-66) % Lymph % (Auto) (24-44) % [place] % (Auto) (2-6) % Eos % (Auto) (2-4) % Baso % (Auto) (0-1) % PT (9.5-12.0) sec INR (0.80-1.20) Sodium 140 (140-148) mmol/L Potassium 4.1 (3.6-5.2) mmol/L Chloride 103 (100-108) mmol/L Carbon Dioxide 25 (21-32) mmol/L Anion Gap 12.3 (5.0-14.0) mmol/L BUN 30 H (7-18) mg/dL Creatinine 1.5 H (0.8-1.3) mg/dL Est Cr Clr Drug Dosing 35.13 mL/min Estimated GFR (MDRD) 46 L (>60) Glucose 133 H (74-106) mg/dL Lactic Acid (0.4-2.0) mmol/L Calcium 8.8 (8.5-10.1) mg/dL Troponin I < 0.017 (0.000-0.056) ng/mL Urine Color Yellow Urine Appearance Clear Urine pH 5.0 (4.5-8.0) Ur Specific [place] 1.015 (1.008-1.030) Urine Protein Negative (NEGATIVE) mg/dL Urine Glucose (UA) Normal (NEGATIVE) mg/dL Urine Ketones Negative (NEGATIVE) mg/dL Urine Occult Blood Negative (NEGATIVE) Urine Nitrite Negative (NEGAITVE) Urine Bilirubin Negative (NEGATIVE) Urine Urobilinogen Normal (NORMAL) mg/dL Ur Leukocyte Esterase Negative (NEGATIVE) Urine RBC 0-5 (0-5) Urine WBC 0-5 (0-5) Ur Epithelial Cells Few Amorphous Sediment Not seen Urine Bacteria Few Urine Mucus Not seen 10/13/18 10/13/18 10/13/18 Range/Units 01:44 05:00 05:00 WBC 14.7 H (4.5-11.0) K/uL RBC 3.76 L (4.30-5.90) M/uL Hgb 10.9 L (12.0-15.0) g/dL Hct 34.6 L (40.0-54.0) % MCV 92 (80-98) fL MCH 29 (27-31) pg MCHC 32 (32-36) % Plt Count 189 (150-400) K/uL Neut % (Auto) 83 H (36-66) % Lymph % (Auto) 11 L (24-44) % [place] % (Auto) 6 (2-6) % Eos % (Auto) 1 L (2-4) % Baso % (Auto) 0 (0-1) % PT 21.1 H (9.5-12.0) sec INR 1.99 H (0.80-1.20) Sodium (140-148) mmol/L Potassium (3.6-5.2) mmol/L Chloride (100-108) mmol/L Carbon Dioxide (21-32) mmol/L Anion Gap (5.0-14.0) mmol/L BUN (7-18) mg/dL Creatinine (0.8-1.3) mg/dL Est Cr Clr Drug Dosing mL/min Estimated GFR (MDRD) (>60) Glucose (74-106) mg/dL Lactic Acid 3.8 H (0.4-2.0) mmol/L Calcium (8.5-10.1) mg/dL Troponin I (0.000-0.056) ng/mL Urine Color Urine Appearance Urine pH (4.5-8.0) Ur Specific [place] (1.008-1.030) Urine Protein (NEGATIVE) mg/dL Urine Glucose (UA) (NEGATIVE) mg/dL Urine Ketones (NEGATIVE) mg/dL Urine Occult Blood (NEGATIVE) Urine Nitrite (NEGAITVE) Urine Bilirubin (NEGATIVE) Urine Urobilinogen (NORMAL) mg/dL Ur Leukocyte Esterase (NEGATIVE) Urine RBC (0-5) Urine WBC (0-5) Ur Epithelial Cells Amorphous Sediment Urine Bacteria Urine Mucus 10/13/18 10/13/18 Range/Units 05:00 08:10 WBC (4.5-11.0) K/uL RBC (4.30-5.90) M/uL Hgb (12.0-15.0) g/dL Hct (40.0-54.0) % MCV (80-98) fL MCH (27-31) pg MCHC (32-36) % Plt Count (150-400) K/uL Neut % (Auto) (36-66) % Lymph % (Auto) (24-44) % [place] % (Auto) (2-6) % Eos % (Auto) (2-4) % Baso % (Auto) (0-1) % PT (9.5-12.0) sec INR (0.80-1.20) Sodium 140 (140-148) mmol/L Potassium 3.9 (3.6-5.2) mmol/L Chloride 106 (100-108) mmol/L Carbon Dioxide 27 (21-32) mmol/L Anion Gap 7.1 (5.0-14.0) mmol/L BUN 22 H (7-18) mg/dL Creatinine 1.2 (0.8-1.3) mg/dL Est Cr Clr Drug Dosing 43.92 mL/min Estimated GFR (MDRD) 60 (>60) Glucose 109 H (74-106) mg/dL Lactic Acid 2.3 H (0.4-2.0) mmol/L Calcium 8.3 L (8.5-10.1) mg/dL Troponin I (0.000-0.056) ng/mL Urine Color Urine Appearance Urine pH (4.5-8.0) Ur Specific [place] (1.008-1.030) Urine Protein (NEGATIVE) mg/dL Urine Glucose (UA) (NEGATIVE) mg/dL Urine Ketones (NEGATIVE) mg/dL Urine Occult Blood (NEGATIVE) Urine Nitrite (NEGAITVE) Urine Bilirubin (NEGATIVE) Urine Urobilinogen (NORMAL) mg/dL Ur Leukocyte Esterase (NEGATIVE) Urine RBC (0-5) Urine WBC (0-5) Ur Epithelial Cells Amorphous Sediment Urine Bacteria Urine Mucus Sunil Results Last 24 Hours: Microbiology 10/12/18 20:35 Influenza Type A Antigen Screen - Final Nasal, Unspecified NEGATIVE INFLUENZA A VIRUS AG Influenza Type B Antigen Screen - Final NEGATIVE INFLUENZA B VIRUS AG Med Orders - Current: Current Medications Acetaminophen (Tylenol) 650 mg PO Q4H PRN PRN Reason: Pain (Mild 1-3)/fever Hydrocodone Bitart/Acetaminophen ([place] 325-5 Mg) 1 tab PO Q4H PRN PRN Reason: Pain (moderate 4-6) Albuterol (Proventil Neb Soln) 2.5 mg NEB Q4H PRN PRN Reason: Shortness Of Breath/wheezing Albuterol/Ipratropium (Duoneb 3.0-0.5 Mg/3 Ml) 3 ml NEB QIDRT [facility] Last Admin: 10/13/18 10:51 Dose: 3 ml Atorvastatin Calcium (Lipitor) 80 mg PO BEDTIME [facility] Bisacodyl (Dulcolax) 5 mg PO DAILY PRN PRN Reason: Constipation Cyclobenzaprine HCl (Flexeril) 10 mg PO TID [facility] Last Admin: 10/13/18 08:02 Dose: 10 mg Docusate Sodium (Colace) 100 mg PO BID PRN PRN Reason: Constipation Fluoxetine HCl (Prozac) 10 mg PO DAILY [facility] Last Admin: 10/13/18 08:02 Dose: 10 mg Gabapentin (Neurontin) 600 mg PO TID [facility] Last Admin: 10/13/18 08:02 Dose: 600 mg Hydromorphone HCl (Dilaudid) 1 mg IVPUSH Q4H PRN PRN Reason: Pain Azithromycin 500 mg/ Sodium (Chloride) 250 mls @ 250 mls/hr IV ONETIME ONE Stop: 10/13/18 21:59 Ceftriaxone Sodium 1 gm/ (Sodium Chloride) 50 mls @ 100 mls/hr IV Q24H [facility] Lorazepam (Ativan) 1 mg IV Q6H PRN PRN Reason: Nausea/Vomiting Melatonin (Melatonin) 6 mg PO BEDTIME [facility] Methylprednisolone Sodium Succinate (Solu-Medrol) 62.5 mg IVPUSH Q6H [facility] Last Admin: 10/13/18 09:47 Dose: 62.5 mg Metoprolol Tartrate (Lopressor) 50 mg PO BID [facility] Last Admin: 10/13/18 08:00 Dose: 50 mg Ondansetron HCl (Zofran Odt) 4 mg PO Q6H PRN PRN Reason: Nausea able to take PO Pantoprazole Sodium (Protonix) 40 mg PO DAILY@0730 [facility] Last Admin: 10/13/18 08:00 Dose: 40 mg Warfarin Sodium (Coumadin) 2.5 mg PO SuTuThSa@1300 [facility] Warfarin Sodium (Coumadin) 1.25 mg PO MoWeFr@1300 [facility] Discontinued Medications Acetaminophen (Tylenol Extra Strength) 1,000 mg PO ONETIME ONE Stop: 10/12/18 20:30 Last Admin: 10/12/18 20:42 Dose: 1,000 mg Azithromycin (Zithromax) 500 mg PO ONETIME ONE Stop: 10/13/18 00:41 Last Admin: 10/13/18 00:53 Dose: 500 mg Lactated Ringer's (Ringers, Lactated) 1,000 mls @ 1,000 mls/hr IV BOLUS ONE Stop: 10/12/18 21:29 Last Admin: 10/12/18 20:45 Dose: 1,000 mls/hr Lactated Ringer's (Ringers, Lactated) 1,000 mls @ 1,000 mls/hr IV BOLUS ONE Stop: 10/12/18 22:32 Last Admin: 10/12/18 21:52 Dose: 1,000 mls/hr Lactated Ringer's (Ringers, Lactated) 1,000 mls @ 1,000 mls/hr IV BOLUS ONE Stop: 10/12/18 23:56 Last Admin: 10/12/18 23:00 Dose: 1,000 mls/hr Ceftriaxone Sodium 1 gm/ (Sodium Chloride) 50 mls @ 100 mls/hr IV ONETIME ONE Stop: 10/13/18 01:09 Last Admin: 10/13/18 00:52 Dose: 100 mls/hr Sodium Chloride (Normal Saline) 1,000 mls @ 100 mls/hr IV ASDIRECTED [facility] Last Admin: 10/13/18 03:43 Dose: 100 mls/hr Methylprednisolone Sodium Succinate (Solu-Medrol) 125 mg IVPUSH ONETIME ONE Stop: 10/13/18 02:48 Last Admin: 10/13/18 03:43 Dose: 125 mg Methylprednisolone Sodium Succinate (Solu-Medrol) 62.5 mg IVPUSH Q6H [facility] Polyethylene Glycol (Miralax) 34 gm PO ONETIME ONE Stop: 10/12/18 20:34 Last Admin: 10/12/18 20:43 Dose: 34 gm - Exam Quality Assessment: Supplemental Oxygen, DVT Prophylaxis General: Alert, Oriented, Cooperative, Mild Distress Lungs: Decreased Breath Sounds, Wheezing. No: Rales, Rhonchi, Rub Cardiovascular: Regular Rate, Regular Rhythm, No Murmurs GI/Abdominal Exam: Soft, Non-Tender, No Organomegaly, No Distention Extremities: Non-Tender, No Pedal Edema - Problem List Review Problem List Initiated/Reviewed/Updated: Yes - My Orders Last 24 Hours: My Active Orders 10/13/18 10:56 Convert IV to Saline Lock [OM.PC] Routine 10/14/18 05:00 CBC WITH AUTO DIFF [HEME] Timed INR,PT,PROTHROMBIN TIME [COAG] Timed LACTIC ACID [CHEM] Timed - Plan Plan:: ASSESSMENT AND PLAN OF CARE ASSESSMENT AND PLAN Pneumonia, with COPD-improved since admission with current therapy -Saline lock IV -IV Antibiotic; Rocephin 1 gram IV every 24 hours IV Zithromax 500mg every 24 hours -oxygen to keep sats greater than 95% -IV Solumedrol 40mg every 8 hours -schedule Duo nebs every 6 hours, Albuterol nebs every 4 hours prn -blood cultures x2 pending Right Above the knee amputation, 9 years ago, 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 has new prosthesis ordered. current prosthetic leg is painful due to recent wt gain. -right Prosthetic leg pain -referral to OT -referral to PT On Coumadin for A-Fib, cardiac history positive for STEMI, SVT, A-Fib, HTN -Coumadin per protocol -INR.PT in am Maintenance issues -Orders home meds: chronic medication -Nutrition: regular diet -Robbins catheter -not indicated at this time -DVT: SCD -PPI; PO Protonix 40mg daily CODE STATUS: DNR/DNI Admission status: Admit to [address] [place] [address] justification. This patient will be admitted for inpatient services and is medically appropriate meeting medical necessity for inpatient admission as outlined in my documentation. I reasonably expect the patient will require inpatient services that span. Time over 2 midnights. I reasonably expect this patient to be discharged or transferred within 96 hours after admission to the critical access hospital. Disposition: home with Family Primary care provider: Dr. Bell, [facility] Hospitalist: Dr. Berumen
[2018-10-13] MEDS ORDERED: Warfarin 2.5 MG Tab PO SCH (13:00)
[2018-10-13] MEDS: Lactobacillus Rhamnosus GG (Probiotic) Cap PO SCH ×2 (13:17→20:27)
[2018-10-13] MEDS: methylPREDNISolone Sodium Succinate 40 MG/1 ML SDV IVPUSH SCH (17:00)
[2018-10-13] MEDS: atorvaSTATin 20 MG Tab PO SCH (20:27)
[2018-10-13] MEDS: Melatonin 3 MG Tab PO SCH (20:28)
[2018-10-13] MEDS ORDERED: Azithromycin 500 MG in Sodium Chloride 0.9% 250 ML IV ONE (21:00)
[2018-10-13] MEDS: Azithromycin 500 MG in Sodium Chloride 0.9% 250 ML IV SCH (22:04)
[2018-10-13] MEDS: cefTRIAXone 1 GM in Sodium Chloride 0.9% 50 ML IV SCH (22:04)
[2018-10-14] MEDS: methylPREDNISolone Sodium Succinate 40 MG/1 ML SDV IVPUSH SCH ×2 (02:04→09:51)
[2018-10-14] MEDS: Albuterol/Ipratropium 3.0-0.5 MG/3 ML Neb Soln NEB SCH ×4 (07:09→21:40)
[2018-10-14] MEDS: Pantoprazole 40 MG Tab.CR PO SCH (08:49)
[2018-10-14] MEDS: FLUoxetine 10 MG Cap PO SCH (08:50)
[2018-10-14] MEDS: Lactobacillus Rhamnosus GG (Probiotic) Cap PO SCH ×2 (08:50→20:38)
[2018-10-14] MEDS: Cyclobenzaprine 10 MG Tab PO SCH ×3 (08:50→20:37)
[2018-10-14] MEDS: Gabapentin 300 MG Cap PO SCH ×3 (08:50→20:36)
[2018-10-14] MEDS: Metoprolol Tartrate 50 MG Tab PO SCH ×2 (08:56→20:36)
[2018-10-14] MEDS ORDERED: Warfarin 2.5 MG Tab PO SCH (13:00)
--- NOTE | 2018-10-14 13:02 | PCM.PN ---
- General Info Date of Service: 10/14/18 Subjective Update: Mr. Calderon has remained stable since yesterday, vital signs have been good and he has remained afebrile. Minimal shortness of breath above baseline, cough remains nonproductive. Lactic acid level remains mildly elevated. White blood cell count elevated but likely secondary to current therapy with Solu-Medrol. - Review of Systems General: Denies: Fever, Weakness, Chills Pulmonary: Reports: Shortness of Breath, Cough. Denies: Pleuritic Chest Pain, Sputum, Hemoptysis, Wheezing Cardiovascular: Reports: Dyspnea on Exertion. Denies: Chest Pain, Palpitations , Orthopnea, PND, Edema, Lightheadedness Gastrointestinal: Reports: No Symptoms - Patient Data Vitals - Most Recent: Last Vital Signs Temp 97.8 F 10/14/18 11:23 Pulse 74 10/14/18 11:23 Resp 16 10/14/18 11:23 BP 103/51 L 10/14/18 11:23 Pulse Ox 94 L 10/14/18 11:23 Weight - Most Recent: 123 lb 0.287 oz I&O - Last 24 Hours: Intake & Output 10/13/18 10/14/18 10/14/18 22:59 06:59 14:59 Intake Total 740 125 240 Balance 740 125 240 Lab Results Last 24 Hours: Laboratory Results - last 24 hr 10/14/18 10/14/18 10/14/18 Range/Units 05:00 05:00 05:00 WBC 21.0 H (4.5-11.0) K/uL RBC 3.60 L (4.30-5.90) M/uL Hgb 10.3 L (12.0-15.0) g/dL Hct 33.3 L (40.0-54.0) % MCV 93 (80-98) fL MCH 29 (27-31) pg MCHC 31 L (32-36) % Plt Count 203 (150-400) K/uL Neut % (Auto) 93 H (36-66) % Lymph % (Auto) 4 L (24-44) % [place] % (Auto) 3 (2-6) % Eos % (Auto) 0 L (2-4) % Baso % (Auto) 0 (0-1) % PT 22.2 H (9.5-12.0) sec INR 2.11 H (0.80-1.20) Lactic Acid 3.0 H (0.4-2.0) mmol/L Sunil Results Last 24 Hours: Microbiology 10/12/18 20:52 Aerobic Blood Culture - Preliminary Blood - Venous NO GROWTH AFTER 1 DAY Anaerobic Blood Culture - Preliminary NO GROWTH AFTER 1 DAY 10/12/18 20:52 Aerobic Blood Culture - Preliminary Blood - Venous NO GROWTH AFTER 1 DAY Anaerobic Blood Culture - Preliminary NO GROWTH AFTER 1 DAY Med Orders - Current: Current Medications Acetaminophen (Tylenol) 650 mg PO Q4H PRN PRN Reason: Pain (Mild 1-3)/fever Hydrocodone Bitart/Acetaminophen ([place] 325-5 Mg) 1 tab PO Q4H PRN PRN Reason: Pain (moderate 4-6) Last Admin: 10/13/18 20:27 Dose: 1 tab Albuterol (Proventil Neb Soln) 2.5 mg NEB Q4H PRN PRN Reason: Shortness Of Breath/wheezing Albuterol/Ipratropium (Duoneb 3.0-0.5 Mg/3 Ml) 3 ml NEB QIDRT [facility] Last Admin: 10/14/18 11:03 Dose: 3 ml Atorvastatin Calcium (Lipitor) 80 mg PO BEDTIME [facility] Last Admin: 10/13/18 20:27 Dose: 80 mg Bisacodyl (Dulcolax) 5 mg PO DAILY PRN PRN Reason: Constipation Cyclobenzaprine HCl (Flexeril) 10 mg PO TID [facility] Last Admin: 10/14/18 08:50 Dose: 10 mg Docusate Sodium (Colace) 100 mg PO BID PRN PRN Reason: Constipation Fluoxetine HCl (Prozac) 10 mg PO DAILY [facility] Last Admin: 10/14/18 08:50 Dose: 10 mg Gabapentin (Neurontin) 600 mg PO TID [facility] Last Admin: 10/14/18 08:50 Dose: 600 mg Hydromorphone HCl (Dilaudid) 1 mg IVPUSH Q4H PRN PRN Reason: Pain Ceftriaxone Sodium 1 gm/ (Sodium Chloride) 50 mls @ 100 mls/hr IV Q24H [facility] Last Admin: 10/13/18 22:04 Dose: 100 mls/hr Azithromycin 500 mg/ Sodium (Chloride) 250 mls @ 250 mls/hr IV Q24H [facility] Last Admin: 10/13/18 22:04 Dose: 250 mls/hr Lactobacillus Rhamnosus (Culturelle) 1 cap PO BID [facility] Last Admin: 10/14/18 08:50 Dose: 1 cap Lorazepam (Ativan) 1 mg IV Q6H PRN PRN Reason: Nausea/Vomiting Melatonin (Melatonin) 6 mg PO BEDTIME [facility] Last Admin: 10/13/18 20:28 Dose: 6 mg Metoprolol Tartrate (Lopressor) 50 mg PO BID [facility] Last Admin: 10/14/18 08:56 Dose: 50 mg Ondansetron HCl (Zofran Odt) 4 mg PO Q6H PRN PRN Reason: Nausea able to take PO Pantoprazole Sodium (Protonix) 40 mg PO DAILY@0730 [facility] Last Admin: 10/14/18 08:49 Dose: 40 mg Warfarin Sodium (Coumadin) 2.5 mg PO SuTuThSa@1300 [facility] Last Admin: 10/13/18 13:16 Dose: 2.5 mg Warfarin Sodium (Coumadin) 1.25 mg PO MoWeFr@1300 [facility] Discontinued Medications Acetaminophen (Tylenol Extra Strength) 1,000 mg PO ONETIME ONE Stop: 10/12/18 20:30 Last Admin: 10/12/18 20:42 Dose: 1,000 mg Azithromycin (Zithromax) 500 mg PO ONETIME ONE Stop: 10/13/18 00:41 Last Admin: 10/13/18 00:53 Dose: 500 mg Lactated Ringer's (Ringers, Lactated) 1,000 mls @ 1,000 mls/hr IV BOLUS ONE Stop: 10/12/18 21:29 Last Admin: 10/12/18 20:45 Dose: 1,000 mls/hr Lactated Ringer's (Ringers, Lactated) 1,000 mls @ 1,000 mls/hr IV BOLUS ONE Stop: 10/12/18 22:32 Last Admin: 10/12/18 21:52 Dose: 1,000 mls/hr Lactated Ringer's (Ringers, Lactated) 1,000 mls @ 1,000 mls/hr IV BOLUS ONE Stop: 10/12/18 23:56 Last Admin: 10/12/18 23:00 Dose: 1,000 mls/hr Ceftriaxone Sodium 1 gm/ (Sodium Chloride) 50 mls @ 100 mls/hr IV ONETIME ONE Stop: 10/13/18 01:09 Last Admin: 10/13/18 00:52 Dose: 100 mls/hr Sodium Chloride (Normal Saline) 1,000 mls @ 100 mls/hr IV ASDIRECTED [facility] Last Admin: 10/13/18 03:43 Dose: 100 mls/hr Methylprednisolone Sodium Succinate (Solu-Medrol) 125 mg IVPUSH ONETIME ONE Stop: 10/13/18 02:48 Last Admin: 10/13/18 03:43 Dose: 125 mg Methylprednisolone Sodium Succinate (Solu-Medrol) 62.5 mg IVPUSH Q6H [facility] Methylprednisolone Sodium Succinate (Solu-Medrol) 62.5 mg IVPUSH Q6H [facility] Last Admin: 10/13/18 09:47 Dose: 62.5 mg Methylprednisolone Sodium Succinate (Solu-Medrol) 40 mg IVPUSH Q8H [facility] Last Admin: 10/14/18 09:51 Dose: 40 mg Polyethylene Glycol (Miralax) 34 gm PO ONETIME ONE Stop: 10/12/18 20:34 Last Admin: 10/12/18 20:43 Dose: 34 gm - Exam Quality Assessment: DVT Prophylaxis. No: Supplemental Oxygen General: Alert, Oriented, Cooperative, No Acute Distress Lungs: Decreased Breath Sounds. No: Rales, Rhonchi, Rub, Wheezing Cardiovascular: Regular Rate, Regular Rhythm, No Murmurs GI/Abdominal Exam: Soft, Non-Tender, No Organomegaly, No Distention Extremities: Non-Tender, No Pedal Edema - Problem List Review Problem List Initiated/Reviewed/Updated: Yes - My Orders Last 24 Hours: My Active Orders 10/13/18 12:00 Lactobacillus Rhamnosus GG [Culturelle] 1 cap PO BID 10/13/18 18:00 methylPREDNISolone Sod Succ [Solu-MEDROL] 40 mg IVPUSH Q8H 10/13/18 22:00 Azithromycin [Zithromax] 500 mg Sodium Chloride 0.9% [Normal Saline] 250 ml IV Q24H 10/15/18 05:00 CBC WITH AUTO DIFF [HEME] Timed INR,PT,PROTHROMBIN TIME [COAG] Timed LACTIC ACID [CHEM] Timed - Plan Plan:: ASSESSMENT AND PLAN OF CARE ASSESSMENT AND PLAN Pneumonia, with COPD-improved since admission with current therapy -Saline lock IV -IV Antibiotic; Rocephin 1 gram IV every 24 hours IV Zithromax 500mg every 24 hours -schedule Duo nebs every 6 hours, Albuterol nebs every 4 hours prn -blood cultures x2 pending Right Above the knee amputation, 9 years ago, 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 has new prosthesis ordered. current prosthetic leg is painful due to recent wt gain. -right Prosthetic leg pain -referral to OT -referral to PT On Coumadin for A-Fib, cardiac history positive for STEMI, SVT, A-Fib, HTN -Coumadin per protocol -INR.PT in am Maintenance issues -Orders home meds: chronic medication -Nutrition: regular diet -Robbins catheter -not indicated at this time -DVT: SCD -PPI; PO Protonix 40mg daily CODE STATUS: DNR/DNI Admission status: Admit to [address] [place] [address] Admission justification. This patient will be admitted for inpatient services and is medically appropriate meeting medical necessity for inpatient admission as outlined in my documentation. I reasonably expect the patient will require inpatient services that span. Time over 2 midnights. I reasonably expect this patient to be discharged or transferred within 96 hours after admission to the critical access hospital. Disposition: home with Family Primary care provider: Dr. Bell, [facility] Hospitalist: Dr. Berumen
[2018-10-14] MEDS: atorvaSTATin 20 MG Tab PO SCH (20:37)
[2018-10-14] MEDS: Melatonin 3 MG Tab PO SCH (20:38)
[2018-10-14] MEDS: Azithromycin 500 MG in Sodium Chloride 0.9% 250 ML IV SCH (21:41)
[2018-10-14] MEDS: cefTRIAXone 1 GM in Sodium Chloride 0.9% 50 ML IV SCH (22:54)
[2018-10-15] MEDS: Albuterol/Ipratropium 3.0-0.5 MG/3 ML Neb Soln NEB SCH ×2 (07:09→10:58)
[2018-10-15] MEDS: Cyclobenzaprine 10 MG Tab PO SCH (08:24)
[2018-10-15] MEDS: Gabapentin 300 MG Cap PO SCH (08:24)
[2018-10-15] MEDS: Pantoprazole 40 MG Tab.CR PO SCH (08:25)
[2018-10-15] MEDS: FLUoxetine 10 MG Cap PO SCH (08:25)
[2018-10-15] MEDS: Lactobacillus Rhamnosus GG (Probiotic) Cap PO SCH (08:25)
[2018-10-15] MEDS: Metoprolol Tartrate 50 MG Tab PO SCH (08:26)
--- NOTE | 2018-10-15 11:31 | PCM.DCSUM1 ---
Discharge Summary - Hospital Course Brief History: Mr. Calderon is a 73-year-old gentleman who was admitted through the emergency department with shortness of breath and cough secondary to pneumonia and underlying COPD. - Discharge Data Discharge Date: 10/15/18 Discharge Disposition: Home, Self-Care 01 Condition: Stable - Discharge Diagnosis/Problem(s) (1) Pneumonia SNOMED Code(s): 861998995 ICD Code: J18.9 - PNEUMONIA, UNSPECIFIED ORGANISM Status: Acute Priority : High Current Visit: Yes Qualifiers: Pneumonia type: due to unspecified organism Laterality: right Lung location: lower lobe of lung Qualified Code(s): J18.1 - Lobar pneumonia, unspecified organism (2) History of right above knee amputation SNOMED Code(s): 928668416 ICD Code: Z89.611 - ACQUIRED ABSENCE OF RIGHT LEG ABOVE KNEE Status: Chronic Priority: Low Current Visit: Yes Problem Details: reports has gained wt since moving to [place]. his Prosthetic leg is not fitting properly. has been evaluated at [facility] for new leg. (3) On Coumadin for atrial fibrillation SNOMED Code(s): 45690374, 806258382 ICD Code: Z78.9 - OTHER SPECIFIED HEALTH STATUS Status: Chronic Priority : High Current Visit: Yes (4) COPD (chronic obstructive pulmonary disease) SNOMED Code(s): 35910956 ICD Code: J44.9 - CHRONIC OBSTRUCTIVE PULMONARY DISEASE, UNSPECIFIED Status : Chronic Priority: High Current Visit: Yes Qualifiers: COPD type: COPD with acute lower respiratory infection Qualified Code(s): J44.0 - Chronic obstructive pulmonary disease with acute lower respiratory infection (5) Hypoxia SNOMED Code(s): 843036266 ICD Code: R09.02 - HYPOXEMIA Status: Acute Current Visit: Yes - Patient Summary/Data Consults: Consultations 10/13/18 02:47 OT Evaluation and Treatment [CONS] Routine Please Evaluate and Treat. OT Reason for Consult: Other (Type Response) Pending Discharge: right leg prosthetic This query below is only for informational purposes and is not editable. PT Evaluation and Treatment [CONS] Routine Please Evaluate and Treat. PT Reason for Consult: right leg This query below is only for informational purposes and is not editable. Hospital Course: Mr. Calderon is a 73 yo male with a pHx of COPD presents with fever and chills. Had posterior neck and bilateral shoulder pain at one point, not now. Did have a flu shot this season. Feels a little more SOB than normal and is a little constipated. No dysuria. No rash. Mild abdominal discomfort from his constipation. Uses a fiber tablet for tx of his constipation. No sore throat. On evaluation in the emergency department he was found to have infiltrates in the right lung associated with an elevation in white blood cell count. He did report some associated shortness of breath and was noted to have mild hypoxia on presentation. On admission he was given IV fluids for hydration and started on IV antibiotic therapy after blood cultures were obtained. He was treated with a usual course of azithromycin and ceftriaxone for management of community-acquired pneumonia. Initially did use supplemental oxygen but was off of oxygen fairly quickly. Blood cultures remained negative throughout his hospital stay. IV fluids were discontinued and he was able to tolerate a regular diet. By the day of discharge was feeling that his respiratory status was almost back to baseline. On initial evaluation was noted to have some wheezing and was treated transiently with IV Solu-Medrol but this was discontinued on the second hospital day. INR levels were monitored throughout hospitalization because of his long-term oral anticoagulation with warfarin because of underlying atrial fibrillation. Initially INR was subtherapeutic but by the time of discharge was within therapeutic range. By the time of discharge he completed a course of azithromycin, he will be discharged home on oral antibiotic therapy with Omnicef 300 mg twice daily for an additional 3 days. Activity will be as tolerated and he will resume his usual diet. Follow-up appointment will be scheduled with his primary care provider within one week. Follow-up appointment will be scheduled in the Coumadin clinic for October 17. - Patient Instructions Diet: Usual Diet as Tolerated Activity: As Tolerated Other/Special Instructions: Follow up appt. with primary care provider within 1 week. Coumadin clinic appt, WednesdayOctober 17 - Discharge Plan *PRESCRIPTION DRUG MONITORING PROGRAM REVIEWED*: No *COPY OF PRESCRIPTION DRUG MONITORING REPORT IN PATIENT ROCIO: No Prescriptions/Med Rec: Cefdinir [Omnicef] 300 mg PO BID #6 cap Lactobacillus Rhamnosus GG [Culturelle] 1 cap PO BID #60 cap Home Medications: Home Meds Aspirin [Joi Chewable Aspirin] 1 tab PO DAILY 05/29/18 [History] FLUoxetine [PROzac] 1 tab PO DAILY 05/29/18 [History] Gabapentin [Neurontin] 2 cap PO TID 05/29/18 [History] Metoprolol Tartrate [Lopressor] 1 tab PO BID 05/29/18 [History] Omeprazole 1 tab PO DAILY 05/29/18 [History] atorvaSTATin [Lipitor] 1 tab PO BEDTIME 05/29/18 [History] Calcium Polycarbophil [Fibercon] 625 mg PO DAILY 10/12/18 [History] Fish Oil/[place]-3 Fatty Acids [Fish Oil 1,000 MG] 1,040 gm PO DAILY 10/12/18 [ History] Albuterol Sulfate 2.5 mg IH QID 10/13/18 [History] Albuterol [Ventolin HFA] 2 puff IH Q4HR PRN 10/13/18 [History] Budesonide [Pulmicort] 0.5 mg IH BID 10/13/18 [History] Cyclobenzaprine [Flexeril] 10 mg PO TID 10/13/18 [History] Warfarin [Coumadin] 2.5 mg PO ASDIRECTED 10/13/18 [History] Cefdinir [Omnicef] 300 mg PO BID #6 cap 10/15/18 [Rx] Lactobacillus Rhamnosus GG [Culturelle] 1 cap PO BID #60 cap 10/15/18 [Rx] Patient Handouts: Chronic Obstructive Pulmonary Disease, [id number], Community-Acquired Pneumonia, Adult Referrals: Maximo Bell MD [Primary Care Provider] - 10/21/18 3:20 pm (Please arrive 15 minutes early to register for your appointment.) - Discharge Summary/Plan Comment DC Time >30 min.: No - Patient Data Vitals - Most Recent: Last Vital Signs Temp 97.5 F 10/15/18 10:34 Pulse 64 10/15/18 10:34 Resp 16 10/15/18 10:34 BP 115/45 L 10/15/18 10:34 Pulse Ox 95 10/15/18 10:34 Weight - Most Recent: 123 lb 0.287 oz I&O - Last 24 hours: Intake & Output 10/14/18 10/15/18 10/15/18 22:59 06:59 14:59 Intake Total 900 120 480 Output Total 300 Balance 600 120 480 Lab Results - Last 24 hrs: Laboratory Results - last 24 hr 0410/15/18 10/15/18 Range/Units 05:00 05:00 05:00 WBC 20.9 H (4.5-11.0) K/uL RBC 3.49 L (4.30-5.90) M/uL Hgb 10.0 L (12.0-15.0) g/dL Hct 32.1 L (40.0-54.0) % MCV 92 (80-98) fL MCH 29 (27-31) pg MCHC 31 L (32-36) % Plt Count 215 (150-400) K/uL Neut % (Auto) 91 H (36-66) % Lymph % (Auto) 4 L (24-44) % [place] % (Auto) 5 (2-6) % Eos % (Auto) 0 L (2-4) % Baso % (Auto) 0 (0-1) % PT 27.6 H (9.5-12.0) sec INR 2.65 H (0.80-1.20) Lactic Acid 2.1 H (0.4-2.0) mmol/L SENG Results - Last 24 hrs: Microbiology 10/12/18 20:52 Aerobic Blood Culture - Preliminary Blood - Venous NO GROWTH AFTER 2 DAYS Anaerobic Blood Culture - Preliminary NO GROWTH AFTER 2 DAYS 10/12/18 20:52 Aerobic Blood Culture - Preliminary Blood - Venous NO GROWTH AFTER 2 DAYS Anaerobic Blood Culture - Preliminary NO GROWTH AFTER 2 DAYS Med Orders - Current: Current Medications Acetaminophen (Tylenol) 650 mg PO Q4H PRN PRN Reason: Pain (Mild 1-3)/fever Hydrocodone Bitart/Acetaminophen ([place] 325-5 Mg) 1 tab PO Q4H PRN PRN Reason: Pain (moderate 4-6) Last Admin: 10/13/18 20:27 Dose: 1 tab Albuterol (Proventil Neb Soln) 2.5 mg NEB Q4H PRN PRN Reason: Shortness Of Breath/wheezing Albuterol/Ipratropium (Duoneb 3.0-0.5 Mg/3 Ml) 3 ml NEB QIDRT TISH Last Admin: 10/15/18 10:58 Dose: 3 ml Atorvastatin Calcium (Lipitor) 80 mg PO BEDTIME [facility] Last Admin: 10/14/18 20:37 Dose: 80 mg Bisacodyl (Dulcolax) 5 mg PO DAILY PRN PRN Reason: Constipation Cyclobenzaprine HCl (Flexeril) 10 mg PO TID [facility] Last Admin: 10/15/18 08:24 Dose: 10 mg Docusate Sodium (Colace) 100 mg PO BID PRN PRN Reason: Constipation Fluoxetine HCl (Prozac) 10 mg PO DAILY [facility] Last Admin: 10/15/18 08:25 Dose: 10 mg Gabapentin (Neurontin) 600 mg PO TID [facility] Last Admin: 10/15/18 08:24 Dose: 600 mg Hydromorphone HCl (Dilaudid) 1 mg IVPUSH Q4H PRN PRN Reason: Pain Ceftriaxone Sodium 1 gm/ (Sodium Chloride) 50 mls @ 100 mls/hr IV Q24H [facility] Last Admin: 10/14/18 22:54 Dose: 100 mls/hr Azithromycin 500 mg/ Sodium (Chloride) 250 mls @ 250 mls/hr IV Q24H [facility] Last Admin: 10/14/18 21:41 Dose: 250 mls/hr Lactobacillus Rhamnosus (Culturelle) 1 cap PO BID [facility] Last Admin: 10/15/18 08:25 Dose: 1 cap Lorazepam (Ativan) 1 mg IV Q6H PRN PRN Reason: Nausea/Vomiting Melatonin (Melatonin) 6 mg PO BEDTIME [facility] Last Admin: 10/14/18 20:38 Dose: 6 mg Metoprolol Tartrate (Lopressor) 50 mg PO BID [facility] Last Admin: 10/15/18 08:26 Dose: 50 mg Ondansetron HCl (Zofran Odt) 4 mg PO Q6H PRN PRN Reason: Nausea able to take PO Pantoprazole Sodium (Protonix) 40 mg PO DAILY@0730 [facility] Last Admin: 10/15/18 08:25 Dose: 40 mg Warfarin Sodium (Coumadin) 2.5 mg PO SuTuThSa@1300 [facility] Last Admin: 10/13/18 13:16 Dose: 2.5 mg Warfarin Sodium (Coumadin) 1.25 mg PO MoWeFr@1300 [facility] Last Admin: 10/14/18 13:29 Dose: 1.25 mg Discontinued Medications Acetaminophen (Tylenol Extra Strength) 1,000 mg PO ONETIME ONE Stop: 10/12/18 20:30 Last Admin: 10/12/18 20:42 Dose: 1,000 mg Azithromycin (Zithromax) 500 mg PO ONETIME ONE Stop: 10/13/18 00:41 Last Admin: 10/13/18 00:53 Dose: 500 mg Lactated Ringer's (Ringers, Lactated) 1,000 mls @ 1,000 mls/hr IV BOLUS ONE Stop: 10/12/18 21:29 Last Admin: 10/12/18 20:45 Dose: 1,000 mls/hr Lactated Ringer's (Ringers, Lactated) 1,000 mls @ 1,000 mls/hr IV BOLUS ONE Stop: 10/12/18 22:32 Last Admin: 10/12/18 21:52 Dose: 1,000 mls/hr Lactated Ringer's (Ringers, Lactated) 1,000 mls @ 1,000 mls/hr IV BOLUS ONE Stop: 10/12/18 23:56 Last Admin: 10/12/18 23:00 Dose: 1,000 mls/hr Ceftriaxone Sodium 1 gm/ (Sodium Chloride) 50 mls @ 100 mls/hr IV ONETIME ONE Stop: 10/13/18 01:09 Last Admin: 10/13/18 00:52 Dose: 100 mls/hr Sodium Chloride (Normal Saline) 1,000 mls @ 100 mls/hr IV ASDIRECTED [facility] Last Admin: 10/13/18 03:43 Dose: 100 mls/hr Methylprednisolone Sodium Succinate (Solu-Medrol) 125 mg IVPUSH ONETIME ONE Stop: 10/13/18 02:48 Last Admin: 10/13/18 03:43 Dose: 125 mg Methylprednisolone Sodium Succinate (Solu-Medrol) 62.5 mg IVPUSH Q6H [facility] Methylprednisolone Sodium Succinate (Solu-Medrol) 62.5 mg IVPUSH Q6H [facility] Last Admin: 10/13/18 09:47 Dose: 62.5 mg Methylprednisolone Sodium Succinate (Solu-Medrol) 40 mg IVPUSH Q8H [facility] Last Admin: 10/14/18 09:51 Dose: 40 mg Polyethylene Glycol (Miralax) 34 gm PO ONETIME ONE Stop: 10/12/18 20:34 Last Admin: 10/12/18 20:43 Dose: 34 gm - Exam General: Reports: Alert, Oriented, Cooperative, No Acute Distress Lungs: Reports: Clear to Auscultation, Normal Respiratory Effort, Decreased Breath Sounds. Denies: Rales, Rhonchi, Rub, Wheezing Cardiovascular: Reports: Regular Rate, Irregular Rhythm, Murmurs GI/Abdominal Exam: Soft, Non-Tender, No Organomegaly, No Distention
== END 2018-10-15 12:13 | disposition home or self-care (01) | DRG 190 ==
LOC: JP.ED 19:32 → JP.MS 10-13 01:50
PROVIDERS: ADMIT Hospitalist; ATTEND Hospitalist
DX: J44.0 Chronic obstructive pulmonary disease with (acute) lower respiratory infection (principal); J18.1 Lobar pneumonia, unspecified organism; Z66 Do not resuscitate; I10 Essential (primary) hypertension; I48.91 Unspecified atrial fibrillation; R09.02 Hypoxemia; Z87.891 Personal history of nicotine dependence; R50.9 Fever, unspecified; Z79.82 Long term (current) use of aspirin; Z79.01 Long term (current) use of anticoagulants; Z86.73 Personal history of transient ischemic attack (TIA), and cerebral infarction without residual deficits; E78.00 Pure hypercholesterolemia, unspecified; I73.9 Peripheral vascular disease, unspecified; F32.9 Major depressive disorder, single episode, unspecified; I25.2 Old myocardial infarction; Z89.611 Acquired absence of right leg above knee; Z79.899 Other long term (current) drug therapy
CPT/HCPCS: 36415 ×2; 71046; 80048; 81001; 83605; 84484; 85027; 87040 ×2; 87804 ×2; 96361; 96365; 99285; A9270 ×3; J0696; J7050; J7120 ×3; 85025; 85610; 94640; 96375; 97161-GP; J0456; J2920; J2930; J7030; J7620-GY

== ENCOUNTER 2021-02-14 12:19 | Emergency (ER) | payer MEDICARE, OTHER ==
[2021-02-14] MEDS ORDERED: Albuterol/Ipratropium 3.0-0.5 MG/3 ML Neb Soln NEB ONE (13:03)
--- NOTE | 2021-02-14 13:04 | EDM.PDOC ---
ED HPI GENERAL MEDICAL PROBLEM - General Chief Complaint: Respiratory Problem Stated Complaint: SHORTNESS OF BREATH ANXIETY Time Seen by Provider: 02/14/21 12:23 Source of Information: Reports: Patient, Family, RN Notes Reviewed History Limitations: Reports: No Limitations - History of Present Illness INITIAL COMMENTS - FREE TEXT/NARRATIVE: 75-year-old gentleman presents emergency department day complaint of shortness of breath, he states he been short of breath for about 4 hours no nausea vomiting no chest pain no fever no cough no sputum production. He does have a history of COPD uses oxygen at night. Was brought in by EMS services. Also history of peripheral vascular disease he does have below knee amputation on the right - Related Data Allergies Allergy/AdvReac Type Severity Reaction Status Date / Time No Known Allergies Allergy Verified 02/14/21 12:40 Home Meds: Home Meds FLUoxetine [PROzac] 1 tab PO DAILY 05/29/18 [History] Gabapentin [Neurontin] 2 cap PO TID 05/29/18 [History] Metoprolol Tartrate [Lopressor] 1 tab PO BID 05/29/18 [History] Omeprazole 1 tab PO DAILY 05/29/18 [History] atorvaSTATin [Lipitor] 1 tab PO BEDTIME 05/29/18 [History] Fish Oil/[place]-3 Fatty Acids [Fish Oil 1,000 MG] 1,040 gm PO DAILY 10/12/18 [History] calcium polycarbophiL [Fibercon] 625 mg PO DAILY 10/12/18 [History] Albuterol Sulfate 2.5 mg IH QID 10/13/18 [History] Albuterol [Ventolin HFA] 2 puff IH Q4HR PRN 10/13/18 [History] Warfarin [Coumadin] 2.5 mg PO ASDIRECTED 10/13/18 [History] Fluticasone/Umeclidin/Vilanter [Trelegy Ellipta 100-62.5-25] 1 each INH DAILY 02/14/21 [History] Past Medical History HEENT History: Reports: Cataract Cardiovascular History: Reports: Afib, Aneurysm, High Cholesterol, Hypertension, PVD, SOB on Exertion, Other (See Below) Other Cardiovascular History: arterial disease Respiratory History: Reports: COPD, SOB Gastrointestinal History: Reports: PUD Genitourinary History: Reports: Renal Calculus Musculoskeletal History: Reports: Amputation, Osteoporosis Other Musculoskeletal History: Phantom pain Neurological History: Reports: CVA, Neuropathy, Peripheral, Other (See Below) Other Neuro History: "when i was 24 i had a stroke" Psychiatric History: Reports: Depression - Infectious Disease History Infectious Disease History: Reports: Chicken Pox, Measles - Past Surgical History HEENT Surgical History: Reports: Cataract Surgery, Tonsillectomy Cardiovascular Surgical History: Reports: Vascular Surgery, Other (See Below) Other Cardiovascular Surgeries/Procedures: aortic bifemoral bypass. needs ablation Musculoskeletal Surgical History: Reports: Amputation, Other (See Below) Other Musculoskeletal Surgeries/Procedures:: Right above them knee Social & Family History - Family History Family Medical History: No Pertinent Family History - Tobacco Use Tobacco Use Status *Q: Never Tobacco User - Caffeine Use Caffeine Use: Reports: Coffee Other Caffeine Use: 1 cup coffee, occational soda - Living Situation & Occupation Living situation: Reports: ( last fall.) Occupation: Retired (was living in the state [facility], , was asked by Cousins to come to [place] to live in [facility]. has two adult Children living in [place] and [place].) ED ROS GENERAL - Review of Systems Review Of Systems: See Below Constitutional: Reports: Chills. Denies: Fever HEENT: Reports: No Symptoms Respiratory: Reports: Shortness of Breath. Denies: Wheezing, Cough, Sputum ED EXAM, GENERAL - Physical Exam Exam: See Below Exam Limited By: No Limitations General Appearance: Alert, WD/WN, No Apparent Distress Respiratory/Chest: No Accessory Muscle Use, Chest Non-Tender, Decreased Breath Sounds. No: Crackles, Rales, Rhonchi, Wheezing Cardiovascular: No Murmur, Irregularly Irregular GI/Abdominal: Soft, Non-Tender #1 Interpretation EKG Date: 02/14/21 Time: 13:32 Rhythm: NSR Braw[place]: LAD-Left Brawley Deviation P-Wave: Present QRS: LBBB ST-T: Normal QT: Normal Comparison: No Change Course - Vital Signs Last Recorded V/S: Last Vital Signs Temp 98.1 F 02/14/21 12:47 Pulse 71 02/14/21 16:53 Resp 18 02/14/21 12:47 BP 177/63 H 02/14/21 16:53 Pulse Ox 93 L 02/14/21 15:11 - Orders/Labs/Meds Orders: Active Orders 24 hr Category Date Time Status EKG Documentation Completion [RC] ASDIRECTED Care 02/14/21 13:00 Active RT Aerosol Therapy [RC] ASDIRECTED Care 02/14/21 13:03 Active Iopamidol [Isovue-370 (76%)] Med 02/14/21 16:15 Active 100 ml IV . DIRECTED Sodium Chloride 0.9% [Normal Saline] 1,000 ml Med 02/14/21 16:00 Active IV ASDIRECTED Sodium Chloride 0.9% [Normal Saline] 100 ml Med 02/14/21 16:15 Active IV ASDIRECTED EKG 12 Lead [EK] Urgent Ther 02/14/21 13:00 Ordered Medication Orders Sodium Chloride (Normal Saline) 1,000 mls @ 125 mls/hr IV ASDIRECTED TISH Last Admin: 02/14/21 16:23 Dose: 125 mls/hr Documented by: SHON Sodium Chloride (Normal Saline) 100 mls @ 3 mls/sec IV ASDIRECTED TISH Last Admin: 02/14/21 16:18 Dose: 4 mls/sec Documented by: SERGIO Iopamidol (Iopamidol 755 Mg/Ml 100 Ml Bottle) 100 ml IV . DIRECTED TISH Last Admin: 02/14/21 16:18 Dose: 100 ml Documented by: SERGIO Labs: Laboratory Tests 02/14/21 02/14/21 02/14/21 Range/Units 13:08 13:08 13:08 WBC 12.9 H (4.5-11.0) K/uL RBC 4.60 (4.30-5.90) M/uL Hgb 14.1 D (12.0-15.0) g/dL Hct 42.1 (40.0-54.0) % MCV 92 (80-98) fL MCH 31 (27-31) pg MCHC 34 (32-36) % Plt Count 193 (150-400) K/uL Neut % (Auto) 86.8 H (36-66) % Lymph % (Auto) 6.8 L (24-44) % [place] % (Auto) 6.0 (2-6) % Eos % (Auto) 0.2 L (2-4) % Baso % (Auto) 0.2 (0-1) % PT 12.0 (9.5-12.0) sec INR 1.10 (0.80-1.20) D-Dimer, Quantitative (0.0-500.0) ng/mL Sodium 141 (140-148) mmol/L Potassium 5.0 (3.6-5.2) mmol/L Chloride 105 (100-108) mmol/L Carbon Dioxide 27 (21-32) mmol/L Anion Gap 9.0 (5.0-14.0) mmol/L BUN 8 D (7-18) mg/dL Creatinine 1.0 (0.8-1.3) mg/dL Est Cr Clr Drug Dosing 56.38 mL/min Estimated GFR (MDRD) > 60 (>60) Glucose 99 (74-106) mg/dL Lactic Acid (0.4-2.0) mmol/L Calcium 8.3 L (8.5-10.1) mg/dL Total Bilirubin 0.4 (0.2-1.0) mg/dL AST 17 (15-37) U/L ALT 25 (12-78) U/L Alkaline Phosphatase 74 (46-116) U/L Troponin I 0.019 (0.000-0.056) ng/mL C-Reactive Protein (0.0-0.3) mg/dL Total Protein 5.9 L (6.4-8.2) g/dL Albumin 3.1 L (3.4-5.0) g/dL Globulin 2.8 (2.3-3.5) g/dL Albumin/Globulin Ratio 1.1 L (1.2-2.2) Procalcitonin ng/mL 02/14/21 02/14/21 02/14/21 Range/Units 13:08 13:08 13:08 WBC (4.5-11.0) K/uL RBC (4.30-5.90) M/uL Hgb (12.0-15.0) g/dL Hct (40.0-54.0) % MCV (80-98) fL MCH (27-31) pg MCHC (32-36) % Plt Count (150-400) K/uL Neut % (Auto) (36-66) % Lymph % (Auto) (24-44) % [place] % (Auto) (2-6) % Eos % (Auto) (2-4) % Baso % (Auto) (0-1) % PT (9.5-12.0) sec INR (0.80-1.20) D-Dimer, Quantitative (0.0-500.0) ng/mL Sodium (140-148) mmol/L Potassium (3.6-5.2) mmol/L Chloride (100-108) mmol/L Carbon Dioxide (21-32) mmol/L Anion Gap (5.0-14.0) mmol/L BUN (7-18) mg/dL Creatinine (0.8-1.3) mg/dL Est Cr Clr Drug Dosing mL/min Estimated GFR (MDRD) (>60) Glucose (74-106) mg/dL Lactic Acid 3.0 H (0.4-2.0) mmol/L Calcium (8.5-10.1) mg/dL Total Bilirubin (0.2-1.0) mg/dL AST (15-37) U/L ALT (12-78) U/L Alkaline Phosphatase (46-116) U/L Troponin I (0.000-0.056) ng/mL C-Reactive Protein < 0.05 (0.0-0.3) mg/dL Total Protein (6.4-8.2) g/dL Albumin (3.4-5.0) g/dL Globulin (2.3-3.5) g/dL Albumin/Globulin Ratio (1.2-2.2) Procalcitonin < 0.05 ng/mL 02/14/21 02/14/21 02/14/21 Range/Units 13:10 15:25 17:59 WBC (4.5-11.0) K/uL RBC (4.30-5.90) M/uL Hgb (12.0-15.0) g/dL Hct (40.0-54.0) % MCV (80-98) fL MCH (27-31) pg MCHC (32-36) % Plt Count (150-400) K/uL Neut % (Auto) (36-66) % Lymph % (Auto) (24-44) % [place] % (Auto) (2-6) % Eos % (Auto) (2-4) % Baso % (Auto) (0-1) % PT (9.5-12.0) sec INR (0.80-1.20) D-Dimer, Quantitative 1348.83 H (0.0-500.0) ng/mL Sodium (140-148) mmol/L Potassium (3.6-5.2) mmol/L Chloride (100-108) mmol/L Carbon Dioxide (21-32) mmol/L Anion Gap (5.0-14.0) mmol/L BUN (7-18) mg/dL Creatinine (0.8-1.3) mg/dL Est Cr Clr Drug Dosing mL/min Estimated GFR (MDRD) (>60) Glucose (74-106) mg/dL Lactic Acid (0.4-2.0) mmol/L Calcium (8.5-10.1) mg/dL Total Bilirubin (0.2-1.0) mg/dL AST (15-37) U/L ALT (12-78) U/L Alkaline Phosphatase (46-116) U/L Troponin I 0.034 0.034 (0.000-0.056) ng/mL C-Reactive Protein (0.0-0.3) mg/dL Total Protein (6.4-8.2) g/dL Albumin (3.4-5.0) g/dL Globulin (2.3-3.5) g/dL Albumin/Globulin Ratio (1.2-2.2) Procalcitonin ng/mL Meds: Medications Generic Name Dose Route Start Last Admin Trade Name Freq PRN Reason Stop Dose Admin Sodium Chloride 1,000 mls @ 125 mls/hr 02/14/21 16:00 02/14/21 16:23 Normal Saline IV 125 mls/hr ASDIRECTED TISH Administration Sodium Chloride 100 mls @ 3 mls/sec 02/14/21 16:15 02/14/21 16:18 Normal Saline IV 4 mls/sec ASDIRECTED TISH Administration Iopamidol 100 ml 02/14/21 16:15 02/14/21 16:18 Iopamidol 755 Mg/Ml 100 Ml Bottle IV 100 ml . DIRECTED TISH Administration Discontinued Medications Generic Name Dose Route Start Last Admin Trade Name Freq PRN Reason Stop Dose Admin Albuterol/Ipratropium 3 ml 02/14/21 13:03 02/14/21 13:14 Albuterol/Ipratropium 3.0-0.5 Mg/3 Ml Neb Smith NEB 02/14/21 13:04 3 ml ONETIME ONE Administration Departure - Departure Time of Disposition: 18:30 Disposition: Home, Self-Care 01 Condition: Fair Clinical Impression: COPD (chronic obstructive pulmonary disease) Qualifiers: COPD type: emphysema Emphysema type: panlobular Qualified Code(s): J43.1 - Panlobular emphysema Dyspnea Qualifiers: Dyspnea type: shortness of breath Qualified Code(s): R06.02 - Shortness of breath; R06.00 - Dyspnea, unspecified; R06.01 - Orthopnea - Discharge Information Instructions: Shortness of Breath, Adult, [id number], Chronic Obstructive Pulmonary Disease Exacerbation, [id number] Referrals: PCP,Unknown [Primary Care Provider] - Forms: ED Department Discharge Additional Instructions: Please followup with your primary care provider in 3-5 days if not better, please call return to the emergency department with worsening of symptoms. Sepsis Event Note (ED) - Evaluation Sepsis Screening Result: No Definite Risk - Focused Exam Vital Signs: Vital Signs Temp Pulse Resp BP Pulse Ox 02/14/21 16:53 71 177/63 H 02/14/21 15:11 72 162/63 H 93 L 02/14/21 12:47 98.1 F 76 18 138/59 L 95 02/14/21 12:30 98.1 F 76 18 138/59 L 96 - My Orders Last 24 Hours: My Active Orders 02/14/21 13:00 EKG Documentation Completion [RC] ASDIRECTED EKG 12 Lead [EK] Urgent 02/14/21 13:03 RT Aerosol Therapy [RC] ASDIRECTED 02/14/21 16:00 Sodium Chloride 0.9% [Normal Saline] 1,000 ml IV ASDIRECTED 02/14/21 16:15 Iopamidol [Isovue-370 (76%)] 100 ml IV . DIRECTED Sodium Chloride 0.9% [Normal Saline] 100 ml IV ASDIRECTED - Assessment/Plan Last 24 Hours: My Active Orders 02/14/21 13:00 EKG Documentation Completion [RC] ASDIRECTED EKG 12 Lead [EK] Urgent 02/14/21 13:03 RT Aerosol Therapy [RC] ASDIRECTED 02/14/21 16:00 Sodium Chloride 0.9% [Normal Saline] 1,000 ml IV ASDIRECTED 02/14/21 16:15 Iopamidol [Isovue-370 (76%)] 100 ml IV . DIRECTED Sodium Chloride 0.9% [Normal Saline] 100 ml IV ASDIRECTED Plan: Assessment Acuity = acute Site and laterality = increasing dyspnea complicated the patient with known history of COPD Etiology = probably related to air quality Manifestations = none Location of injury = Home Lab values = WBC elevated 12.8 consistent with leukocytosis, CMP unremarkable D- dimer elevated 1348 of uncertain significance lactic acid elevated 3.1 consistent lactic acidosis troponin 0 0.19, 0.34 and 0.34 all within the normal range procalcitonin less than 0.05 chest x-ray shows no acute process CT scan shows no pulmonary embolism EKG demonstrates a sinus rhythm there is no ST elevations or depressions Plan I did review lab work CT scan results with him he felt significantly better after DuoNeb plan is discharged home continue with regular medications follow-up primary care 3 to 5 days if not better This note was dictated using [employer] voice recognition software please call with any questions on syntax or grammar.
--- NOTE | 2021-02-14 15:14 | CR ---
CHEST: 2 view CLINICAL HISTORY:SOB COMPARISON:2019 FINDINGS: Initial image was inverted and mismarked. The heart size, pulmonary vascularity and hilar structures are normal. No infiltrate effusion or pneumothorax is seen. Lungs are emphysematous IMPRESSION: No acute cardiopulmonary process Moderate emphysematous changes
[2021-02-14] MEDS ORDERED: Sodium Chloride 0.9% 1,000 ML IV SCH (16:00)
[2021-02-14] MEDS ORDERED: Iopamidol 755 Mg/ML 100 ML Bottle IV SCH (16:15)
[2021-02-14] MEDS ORDERED: Sodium Chloride 0.9% 100 ML IV SCH (16:15)
--- NOTE | 2021-02-14 17:38 | CRLCT ---
For Patients: As a result of the Century Cures Act, medical imaging exams and procedure reports are released immediately into your electronic medical record. You may view this report before your referring provider. If you have questions, please contact your health care provider. INDICATION: Shortness of breath and elevated D-dimer TECHNIQUE: CT chest PE was acquired with 100 cc Isovue-300 intravenous contrast. COMPARISON: None. FINDINGS: Heart and vasculature: Contrast opacification of the pulmonary arterial tree is adequate. No sign of pulmonary embolism. No pericardial effusion. Coronary atherosclerosis. Thoracic aorta normal in caliber. Lungs and pleural: No pleural effusion or pneumothorax. Diffuse centrilobular emphysema. 3 millimeter noncalcified pulmonary nodule left upper lobe. Minimal consolidation left lower lobe posterior segment. Linear atelectasis right lung base. Lymph nodes/mediastinum: No enlarged mediastinal lymph nodes. Chest wall: No masses. Upper abdomen: Left renal cysts. Bones: Old left 8th and 9th rib fractures laterally. IMPRESSION: 1. No evidence of pulmonary embolus. 2. Minimal consolidation left lower lobe posterior segment. The appearance is suggestive of some focal atelectasis although if there signs/symptoms of infection, pneumonia is a possibility. 3. Diffuse centrilobular emphysema. Please note that all CT scans at this facility use dose modulation, iterative reconstruction, and/or weight-based dosing when appropriate to reduce radiation dose to as low as reasonably achievable. Dictated by Marshall Gibbs MD @ 02/14/2021 5:36:[address] Marshall Gibbs @ Feb 14 2021 5:36PM
== END 2021-02-14 18:51 | disposition home or self-care (01) ==
LOC: JP.ED 12:19
DX: J43.1 Panlobular emphysema (principal); I48.91 Unspecified atrial fibrillation; E78.00 Pure hypercholesterolemia, unspecified; I10 Essential (primary) hypertension; Z86.73 Personal history of transient ischemic attack (TIA), and cerebral infarction without residual deficits; Z79.01 Long term (current) use of anticoagulants; Z79.899 Other long term (current) drug therapy
CPT/HCPCS: 36415; 71046; 71275; 80053; 83605; 84145; 84484; 85025; 85379; 85610; 86140; 93005; 94640; 99285; J7030; Q9967; J7620-GY